=== PATIENT | female | born 1960 | race Caucasian/White ===

== ENCOUNTER → 2017-06-06 | Outpatient (CLI) | payer BC ==
--- NOTE | 2017-06-06 09:22 | US ---
EXAMINATION TYPE: US kidneys/renal and bladder DATE OF EXAM: 06/06/2017 COMPARISON: NONE CLINICAL HISTORY: N30.20 Chronic cystitis. Pt states recurrent UTI's EXAM MEASUREMENTS: Right Kidney: 10.3 x 4.7 x 4.7 cm Left Kidney: 11.4 x 5.9 x 4.7 cm Right Kidney: wnl Left Kidney: appeared wnl, difficult to visualize due to overlying bowel gas Bladder: wnl Bilateral Jets seen: No There is no evidence for hydronephrosis at this point in time. No nephrolithiasis is seen. No moe s are identified. The urinary bladder is anechoic. Bilateral ureteral jets are seen. Incidental finding AAA, largest measurement= 4.8 cm/ pt states this is known IMPRESSION: 1. AAA. 2. Unremarkable evaluation of the kidneys.
== END | disposition home or self-care (01) ==
LOC: RADUSWWP 08:36
PROVIDERS: ATTEND Urology
DX: I71.4 Abdominal aortic aneurysm, without rupture (principal)
CPT/HCPCS: 76770

== ENCOUNTER → 2017-07-20 | Outpatient (CLI) | payer BC ==
[2017-07-20 16:42] LABS: CH 32.8; CHCM 33.2; HCT 35.7 % (34.0-46.0); HDW 2.48; HGB 11.9 gm/dL (11.4-16.0); MCH 33.4 pg (25.0-35.0); MCHC 33.5 g/dL (31.0-37.0); MCV 99.6 fL (80.0-100.0); Macrocytosis Slight; Mean Platelet Volume 7.2; RBC 3.58 m/uL (3.80-5.40); RDW 15.1 % (11.5-15.5)
[2017-07-20 16:51] LABS: Anion Gap 8 mmol/L; Blood Urea Nitrogen 13 mg/dL (7-17); Calcium 9.7 mg/dL (8.4-10.2); Carbon Dioxide 27 mmol/L (22-30); Chloride 105 mmol/L (98-107); Glucose 103 mg/dL (74-99); Non-African American GFR(MDRD) >60 (>60 ml/min/1.73 sqM); Potassium 4.6 mmol/L (3.5-5.1); Sodium 140 mmol/L (137-145)
== END | disposition home or self-care (01) ==
LOC: LABPAT 16:24
PROVIDERS: ATTEND Urology
DX: R39.12 Poor urinary stream (principal); Z01.812 Encounter for preprocedural laboratory examination
CPT/HCPCS: 80048; 85027; 87086

== ENCOUNTER → 2017-11-08 | Outpatient (CLI) | payer MEDICARE, OTHER ==
[2017-11-08 12:11] LABS: Anion Gap 7 mmol/L; Blood Urea Nitrogen 15 mg/dL (7-17); Calcium 10.1 mg/dL (8.4-10.2); Carbon Dioxide 31 mmol/L (22-30); Chloride 102 mmol/L (98-107); Glucose 105 mg/dL (74-99); Potassium 5.4 mmol/L (3.5-5.1); Sodium 140 mmol/L (137-145)
[2017-11-08 12:30] LABS: HCT 42.2 % (34.0-46.0); HGB 13.3 gm/dL (11.4-16.0); MCH 30.9 pg (25.0-35.0); MCHC 31.5 g/dL (31.0-37.0); MCV 98.2 fL (80.0-100.0); Macrocytosis Slight; Mean Platelet Volume 7.7; Platelet Count 318 k/uL (150-450); RDW 15.7 % (11.5-15.5); WBC 5.3 k/uL (3.8-10.6)
== END | disposition home or self-care (01) ==
LOC: LABPAT 10:57
PROVIDERS: ATTEND Urology
DX: Z01.818 Encounter for other preprocedural examination (principal); R35.0 Frequency of micturition; N30.20 Other chronic cystitis without hematuria; N39.41 Urge incontinence; Z79.899 Other long term (current) drug therapy
CPT/HCPCS: 36415; 80048; 85027; 87086

== ENCOUNTER 2017-11-09 08:01 | Day surgery (SDC) | payer OTHER, MEDICARE ==
[2017-11-08 12:21] VITALS: BMI 38.4
[~2017-11-09 08:01] MED LIST: GENTAMICIN 120 MG in SODIUM CHLORIDE 0.9% 100 ML IVPB ONE; ceFAZolin IN SWFI 2 GM/20 ML SYRINGE IVP ONE
[2017-11-09 08:32] VITALS: TEMP 98.2
[2017-11-09] MEDS ORDERED: LACTATED RINGERS 1,000 ML IV ONE ×3 (08:46→11:06)
[2017-11-09] MEDS ORDERED: ONDANSETRON 4 MG/2 ML VIAL IVP ONE (08:55)
[2017-11-09] MEDS ORDERED: PROPOFOL 10 MG/ML 20 ML VIAL IV ONE (10:19)
[2017-11-09] MEDS ORDERED: MIDAZOLAM 2 MG/2 ML VIAL ONE (10:19)
[2017-11-09] MEDS ORDERED: LIDOCAINE 1% INJ 10MG/ML (20 ML MDV) ONE (10:19)
[2017-11-09] MEDS ORDERED: SUCCINYLCHOLINE CHLORIDE 100 MG/5 ML SYR IV ONE (10:19)
[2017-11-09] MEDS ORDERED: fentaNYL (PF) 50 MCG/ML 2 ML AMP ONE (10:19)
[2017-11-09] MEDS ORDERED: BUPIVACAINE-EPI 0.5%-1:200,000 10 ML VIAL SQ ONE ×2 (10:41)
[2017-11-09] MEDS ORDERED: GENTAMICIN IRRIGATION ONE (11:00)
[2017-11-09] MEDS ORDERED: SODIUM CHLORIDE 0.9% IRRIGATION ONE (11:00)
[2017-11-09] MEDS ORDERED: BACITRACIN 500 UNIT/GM OINT 28.4 GM TUBE TOPICAL ONE (11:03)
--- NOTE | 2017-11-09 11:49 | P.OP ---
Date of Procedure: 11/09/17 Preoperative Diagnosis: Urge Incontinence, Suburethral Synthetic Graft Erosion Postoperative Diagnosis: Same Procedure(s) Performed: Excision of Eroded Synthetic Graft Anesthesia: BRUNO Surgeon: Zach Arguelles Estimated Blood Loss (ml): 10 IV fluids (ml): 1,000 Pathology: none sent Condition: stable Disposition: PACU Indications for Procedure: She is a 57 year old female with a history of 5-6 UTI per year since having an anterior repair with TOT sling done in 2011. She has also been experiencing severe urgency and urge incontinence since the surgery, requiring 1-2 thick pads daily. Prior to the sling, she experienced mild MADDI with coughing and dancing, which did not require the use of pads. She has been on Vesicare, Ditropan and another drug, and none have worked. She has recently been treated for several UTI's (E coli and Enterobacter). Myrbetriq 50 mg helped her urgency to a suboptimal degree. Urodynamic testing showed an interrupted stream, but voiding pressures are low and bladder emptying is complete. She underwent takedown of the sling, and she states that her symptoms are 90% improved. Her urgency has almost resolved; she denies AMDDI. She resumed sexual activity, and her complains of something in the vagina picking at him. Examination reveals slight separation at the midline, and part of the sling can be felt. She was treated with Estrace vaginal cream, but this failed to help. She will thus undergo removal of exposed sling. Bactrim was prescribed for her recurrent UTI. Operative Findings: Small amount of eroded graft, arising from the left of midline. Description of Procedure: The patient was taken to the operating room and placed in the dorsal lithotomy position, with her legs supported in Saji stirrups. The perineum, lower abdomen, and vagina were prepped and draped sterilely. A 16-Tuvaluan Perez catheter was placed. 0.5% Marcaine with epinephrine was injected submucosally within the anterior vaginal wall, over the urethra. A very small amount of synthetic graft was seen to extrude through the anterior vaginal wall in the midline, over the urethra. The scalpel was then used to make an anterior midline vaginal incision over the urethra, in the area where the extruded graft was present. Metzenbaum scissors were used to dissect laterally within the submucosal plane. The visible graft was from the left side, and was immediately deep to the vaginal mucosa. The graft was dissected off of the vaginal mucosa, and the portion of the graft overlying the urethra was excised. The graft was then identified on the right side, and an identical procedure was performed. Once this was completed, there was no graft material within 1 cm of the vaginal incision. Care was taken to avoid any injury to the urethra. Any bleeders were controlled with electrocautery, achieving excellent hemostasis. The wound was irrigated with a gentamicin solution. The vaginal incision was then closed using 2-0 Vicryl suture in a running fashion. All sponge and needle counts were correct. The Perez catheter was removed. The patient tolerated the procedure well and was taken to the recovery room in stable condition. During the procedure, the patient's bus driver/monitor showed evidence of atrial fibrillation, though she remained hemodynamically stable. She has a history of atrial fibrillation, and will be seen by cardiology prior to discharge.
[2017-11-09] MEDS ORDERED: RIVAROXABAN 10 MG TAB PO SCH (13:15)
--- NOTE | 2017-11-09 13:23 | P.CRDCN ---
History of Present Illness Consult date: 11/09/17 History of present illness: Mrs. Garibay is a pleasant 57-year-old female with past medical history significant for hypertension, aortic aneurysm, atrial fibrillation, PE, DVT, anxiety and former tobacco abuse. She is here in the hospital for sling removal per Dr. Arguelles. During the procedure she went into atrial fibrillation with controlled ventricular response. For this reason we have been asked to evaluate the patient in the recovery room. Prior to surgery she was in sinus mechanism with no arrhythmia noted. She states she was told she had gone into atrial fibrillation last year while she was undergoing a lengthy back surgery but it was controlled rate as well. Post-operatively she developed a DVT that subsequently traveled and caused a PE. She was anticoagulated at that time with xarelto for 3 months. She is currently not on any supervisor long goods anticoagulation. She is unaware of the fact she is in an abnormal rhythm. She denies chest pain, shortness of breath, dizziness, palpitation or diaphoresis. EKG reveals atrial fibrillation with controlled ventricular response. Laboratory data drawn yesterday pre-operatively reveals hemoglobin 13.3, platelets 318, potassium 5.4, creatinine 0.9 with a GFR greater than 60. Current cardiac medications include lopressor 50 mg daily and lisinopril 10 mg daily. Review of Systems At the time of my exam: CONSTITUTIONAL: Denies fever. Denies chills. EYES: Denies blurred vision. Denies vision changes. Denies eye pain. EARS, NOSE, MOUTH & THROAT: Denies headache. Denies sore throat. Denies ear pain. CARDIOVASCULAR: Denies chest pain. Denies shortness of breath. Denies orthopnea. Denies PND. Denies palpitations. RESPIRATORY: Denies cough. GASTROINTESTINAL: Denies abdominal pain. Denies diarrhea. Denies constipation. Denies nausea. Denies vomiting. MUSCULOSKELETAL: Denies myalgias. INTEGUMENTARY: Denies pruitis. Denies rash. NEUROLOGIC: Denies numbness. Denies tingling. Denies weakness. PSYCHIATRIC: Denies anxiety. Denies depression. ENDOCRINE: Denies fatigue. Denies weight change. Denies polydipsia. Denies polyurina. GENITOURINARY: Denies burning, hematuria or urgency with micturation. HEMATOLOGIC: Denies history of anemia. Denies bleeding. Past Medical History Past Medical History: Cancer, GERD/Reflux, Hypertension Additional Past Medical History / Comment(s): Oral CA 2003; AAA being monitored ; frequent UTI's, poor urinary stream History of Any Multi-Drug Resistant Organisms: None Reported Past Surgical History: Appendectomy, Back Surgery, Bariatric Surgery, Cholecystectomy, Hysterectomy, Joint Replacement, Orthopedic Surgery Additional Past Surgical History / Comment(s): Bladder sling, Colonoscopy, Parathyroid gland removed, R Hip replaced, knee scope, Gastric Bypass Past Anesthesia/Blood Transfusion Reactions: No Reported Reaction Smoking Status: Former smoker - Past Family History Mother Family Medical History: No Reported History Medications and Allergies Home Medications Medication Instructions Recorded Confirmed Type ALPRAZolam [Xanax] 0.5 mg PO Q8HR PRN 07/25/17 11/09/17 History DULoxetine HCL [Cymbalta] 30 mg PO DAILY 07/25/17 11/09/17 History Lansoprazole [Prevacid] 15 mg PO DAILY 07/25/17 11/09/17 History Lisinopril [Zestril] 10 mg PO DAILY 07/25/17 11/09/17 History Meloxicam 7.5 mg PO DAILY 07/25/17 11/09/17 History Metoprolol Tartrate [Lopressor] 50 mg PO DAILY 07/25/17 11/09/17 History Calcium Citrate/Vitamin D3 2 tab PO DAILY 11/08/17 11/09/17 History [Calcitrate + Vit D Caplet] Cholecalciferol [Vitamin D3] 5,000 unit PO DAILY 11/08/17 11/09/17 History Ferrous Sulfate [Iron (65 MG 1 tab PO DAILY 11/08/17 11/09/17 History Elemental)] Rivaroxaban [Xarelto] 20 mg PO W/SUPPER #30 tab 11/09/17 Rx Sulfamethox-Tmp 800-160Mg [Bactrim 1 tab PO BID 11/09/17 11/09/17 History DS 800-160 mg] Allergies Allergy/AdvReac Type Severity Reaction Status Date / Time No Known Allergies Allergy Verified 11/09/17 08:23 Physical Exam Vitals: Vital Signs Temp Pulse Resp BP Pulse Ox 11/09/17 12:31 80 16 143/85 100 11/09/17 12:15 75 16 145/77 100 11/09/17 12:00 73 16 134/75 100 11/09/17 11:43 81 16 140/79 100 11/09/17 11:21 98.2 F 96 16 136/74 97 11/09/17 08:31 98.2 F 67 16 125/70 98 Intake and Output 11/08/17 11/09/17 11/09/17 22:59 06:59 14:59 Intake Total 1104 Output Total 10 Balance 1094 Intake: IV 1104 Output: Estimated Blood Loss 10 Blood pressure 143/85 heart rate 88 afebrile GENERAL: This is a 57-year-old female in no apparent distress at the time of my examination. Obese. HEENT: Head is atraumatic, normocephalic. Pupils are equal, round. Sclerae anicteric. Conjunctivae are clear. Mucous membranes of the mouth are moist. Neck is supple. There is no jugular venous distention. No carotid bruit is heard. LUNGS: Clear to auscultation no wheezes, rales or rhonchi. No chest wall tenderness is noted on palpation or with deep breathing. HEART: Irregular rate and rhythm without murmurs, rubs or gallops. S1 and S2 heard. ABDOMEN: Soft, nontender. Bowel sounds are heard. No organomegaly noted. EXTREMITIES: Trace non-pitting bilateral lower extremity edema and no calf tenderness noted. VASCULAR: Radial and dorsalis pedis pulses palpated, no evidence of clubbing. NEUROLOGIC: Patient is awake, alert and oriented x3. Results 11/09/17 08:43 Comprehensive Metabolic Panel 11/09/17 Range/Units 08:43 Potassium 5.4 H (3.5-5.1) mmol/L Current Medications Generic Name Dose Route Start Last Admin Trade Name Freq PRN Reason Stop Dose Admin Rivaroxaban 20 mg 11/09/17 13:15 Xarelto PO W/SUPPER FARIDEH Intake and Output 11/08/17 11/09/17 11/09/17 22:59 06:59 14:59 Intake Total 1104 Output Total 10 Balance 1094 Intake: IV 1104 Output: Estimated Blood Loss 10 11/09/17 08:43 Assessment and Plan Assessment: ASSESSMENT 1. Paroxysmal atrial fibrillation with controlled ventricular response 2. Essential hypertension 3. Obesity 4. Postoperative swelling removal per Dr. Arguelles PLAN Obtain 2D echocardiogram and doppler study to assess cardiac structure and function. Check TSH. Continue with beta phuc as previously ordered. CHADSVASC score is 2 and therefore we will recommend starting her on Xarelto 20 mg daily. Risks of stroke have been discussed as well as risks of bleeding while on this medication have been discussed. She verbalizes understanding and is in agreement to start this medication. This was also discussed with Dr. Arguelles and he has approved us moving forward in the post-operative phase with starting this medication. First dose now and a prescription has been sent to pharmacy. She will follow up with Dr. Romero in the office in 1-2-weeks, her appointment has been made. This plan has been discussed with her in detail and she is in agreement. The above impression and plan of care have been discussed and directed by the signing physician. Saida Alatorre, nurse practitioner, acting as scribe for signing physician.
[2017-11-09 13:55] VITALS: RESP 18
[2017-11-09 14:14] VITALS: BP 138/72; PULSE 84
--- NOTE | 2017-11-10 09:24 | ECHOF ---
Referral Reason:afib MEASUREMENTS -------- HEIGHT: 175.3 cm WEIGHT: 117.9 kg BP: 131/71 RVIDd: 2.8 cm (< 3.3) IVSd: 1.1 cm (0.6 - 1.1) LVIDd: 4.9 cm (3.9 - 5.3) LVPWd: 1.1 cm (0.6 - 1.1) IVSs: 1.2 cm LVIDs: 3.6 cm LVPWs: 1.3 cm LAESV Index (A-L): 29.84 ml/m Ao Diam: 3.3 cm (2.0 - 3.7) AV Cusp: 1.9 cm (1.5 - 2.6) LA Diam: 3.2 cm (2.7 - 3.8) MV E Jc: 1.05 m/s MV DecT: 303 ms MV A Jc: 0.00 m/s MV E/A Ratio: 299.86 RAP: 5.00 mmHg RVSP: 27.00 mmHg FINDINGS -------- Atrial fibrillation. This was a technically adequate study. The left ventricular size is normal. There is mild concentric left ventricular hypertrophy. Overa ll left ventricular systolic function is normal with, an EF between 55 - 60 %. The right ventricle is normal in size and function. Normal LA size by volume 22+/-6 ml/m2. The right atrium is normal in size. Aortic valve is trileaflet and is mildly thickened. There is no evidence of aortic regurgitation. There is no evidence of aortic stenosis. The mitral valve leaflets are mildly thickened. There is trace mitral regurgitation. Mild tricuspid regurgitation present. Right ventricular systolic pressure is normal at < 35 mmHg. There is no evidence of pulmonary hypertension. The pulmonic valve was not well visualized. The aortic root size is normal. The inferior vena cava is dilated with poor inspiratory collapse which is consistent with estimated r ight atrial pressure of 20 mmHg. The pericardium is normal. There is no pericardial effusion. CONCLUSIONS -------- 1. Atrial fibrillation. 2. This was a technically adequate study. 3. The left ventricular size is normal. 4. There is mild concentric left ventricular hypertrophy. 5. Overall left ventricular systolic function is normal with, an EF between 55 - 60 %. 6. Normal LA size by volume 22+/-6 ml/m2. 7. Aortic valve is trileaflet and is mildly thickened. 8. The mitral valve leaflets are mildly thickened. 9. There is trace mitral regurgitation. 10. Mild tricuspid regurgitation present. 11. Right ventricular systolic pressure is normal at < 35 mmHg. 12. There is no evidence of pulmonary hypertension. 13. The pulmonic valve was not well visualized. 14. The aortic root size is normal. 15. The inferior vena cava is dilated with poor inspiratory collapse which is consistent with estimat ed right atrial pressure of 20 mmHg. 16. There is no pericardial effusion. STITCH CLEANER: Manav Snow RDCS
== END 2017-11-09 14:44 | disposition home or self-care (01) ==
LOC: OR 08:01
PROVIDERS: ATTEND Urology
DX: T83.24XA Erosion of graft of urinary organ, initial encounter (principal); N30.20 Other chronic cystitis without hematuria; N39.41 Urge incontinence; I48.91 Unspecified atrial fibrillation; Z79.01 Long term (current) use of anticoagulants; I10 Essential (primary) hypertension; Z87.891 Personal history of nicotine dependence; K21.9 Gastro-esophageal reflux disease without esophagitis; Z86.718 Personal history of other venous thrombosis and embolism; Z86.711 Personal history of pulmonary embolism; E66.9 Obesity, unspecified; Z68.38 Body mass index [BMI] 38.0-38.9, adult; Z98.84 Bariatric surgery status; D18.09 Hemangioma of other sites; M19.90 Unspecified osteoarthritis, unspecified site; Z79.2 Long term (current) use of antibiotics; Z79.1 Long term (current) use of non-steroidal anti-inflammatories (NSAID); Z79.899 Other long term (current) drug therapy
CPT/HCPCS: 93306; 93005; 84443; 84132; 57295; J2250; J1580 ×2; J0690; J2405; J2001; J3010; J0330; J2704

== ENCOUNTER → 2017-12-19 | Outpatient (CLI) | payer OTHER, MEDICARE ==
[2017-12-19 10:51] LABS: Anion Gap 8 mmol/L; Blood Urea Nitrogen 20 mg/dL (7-17); Carbon Dioxide 28 mmol/L (22-30); Chloride 104 mmol/L (98-107); Potassium 5.2 mmol/L (3.5-5.1); Sodium 140 mmol/L (137-145)
[2017-12-19 11:54] LABS: HCT 41.9 % (34.0-46.0); HGB 12.8 gm/dL (11.4-16.0); Hypochromasia Slight; MCH 31.2 pg (25.0-35.0); MCHC 30.6 g/dL (31.0-37.0); MCV 101.9 fL (80.0-100.0); Macrocytosis Slight; Mean Platelet Volume 6.7; Platelet Count 393 k/uL (150-450); RBC 4.11 m/uL (3.80-5.40); RDW 13.8 % (11.5-15.5); WBC 5.6 k/uL (3.8-10.6)
== END | disposition home or self-care (01) ==
LOC: LABPAT 09:54
PROVIDERS: ATTEND Internal Medicine Cardiovascular Disease
DX: Z01.812 Encounter for preprocedural laboratory examination (principal); I48.1 Persistent atrial fibrillation
CPT/HCPCS: 36415; 80051; 82565; 84520; 85027

== ENCOUNTER 2017-12-27 06:19 | Day surgery (SDC) | payer OTHER, MEDICARE ==
[2017-12-22 15:29] VITALS: BMI 38.4
[~2017-12-27 06:19] MED LIST changes: -GENTAMICIN 120 MG in SODIUM CHLORIDE 0.9% 100 ML IVPB ONE; +LACTATED RINGERS 1,000 ML IV SCH; +SODIUM CHLORIDE 0.9% 1,000 ML IV SCH; -ceFAZolin IN SWFI 2 GM/20 ML SYRINGE IVP ONE
[2017-12-27 06:46] VITALS: TEMP 97.9
[2017-12-27] MEDS ORDERED: IV FLUID CONTINUATION 500 ML IV ONE (07:05)
[2017-12-27 07:12] LABS: Potassium 4.3 mmol/L (3.5-5.1)
[2017-12-27] MEDS ORDERED: PROPOFOL 10 MG/ML 20 ML VIAL IV ONE (07:31)
[2017-12-27] MEDS ORDERED: LIDOCAINE 1% INJ 10MG/ML (20 ML MDV) ONE (07:31)
[2017-12-27] MEDS ORDERED: FLECAINIDE 50 MG TAB PO STA (07:49)
--- NOTE | 2017-12-27 08:13 | ECHOT ---
TRANSESOPHAGEAL ECHOCARDIOGRAM INDICATION: Chronic atrial fibrillation. PROCEDURE NOTE: After obtaining informed consent, transesophageal echocardiogram is performed in left lateral position using an Omniplane probe. . The patient tolerated the procedure well without any obvious immediate complications. FINDINGS: 1. There is no intracardiac thrombus within the left atrial appendage, left atrium, right atrium, right ventricle. 2. Left ventricle has normal size and systolic function. 3. mitral regurgitation. 4. Aortic valve . 5. Tricuspid valve shows mild tricuspid regurgitation. 6. Interatrial septum: There is no evidence of left to right shunt by color-flow Doppler or lqrrl-gb-[id number] shunt by agitated saline contrast. . 7. Aorta shows mild atherosclerotic changes. CONCLUSIONS: 1. No intracardiac thrombus. 2. Mild mitral regurgitation. PLAN: The patient will have cardioversion. DEVAN / PITERN: [id number] /
--- NOTE | 2017-12-27 08:22 | CE ---
CARDIAC ELECTROPHYSIOLOGY REPORT CARDIOVERSION NOTE INDICATION: Chronic atrial fibrillation. After obtaining informed consent, electrical cardioversion was performed using 200 joules of direct current, 300 joules of DC current. The patient was adequately anticoagulated with Xarelto. We were unsuccessful the first time. We shocked her the second time, she was briefly in sinus rhythm with occasional P waves, but reverted back to atrial fibrillation. PLAN: The plan is to admit her overnight, start her on flecainide 100 mg b.i.d., and if she tolerates it well, bring her back in 2 to 3 weeks later and then attempt the procedure again. MMJANIYAL / PITERN: [id number] /
[2017-12-27 08:44] VITALS: BP 188/92; PULSE 60; RESP 18
[2017-12-27] MEDS ORDERED: FLECAINIDE 50 MG TAB PO SCH (21:00)
== END 2017-12-27 09:30 | disposition home or self-care (01) ==
LOC: CATHCVL 06:19
PROVIDERS: ATTEND Internal Medicine Cardiovascular Disease
DX: I48.2 Chronic atrial fibrillation (principal); Z79.01 Long term (current) use of anticoagulants; I34.0 Nonrheumatic mitral (valve) insufficiency; I10 Essential (primary) hypertension; Z82.49 Family history of ischemic heart disease and other diseases of the circulatory system; Z79.1 Long term (current) use of non-steroidal anti-inflammatories (NSAID); Z79.899 Other long term (current) drug therapy
CPT/HCPCS: 93312; 93320; 93325; 92960; 80051; J2001; J2704; 93005

== ENCOUNTER 2018-02-07 09:07 | Day surgery (SDC) | payer OTHER, MEDICARE ==
[2018-02-06 12:00] VITALS: BMI 38.5
[~2018-02-07 09:07] MED LIST changes: +LIDOCAINE 1% 20 ML VIAL (10MG/ML) FOR IV START INTRADERMA PRN
[2018-02-07 09:24] VITALS: TEMP 98.2
[2018-02-07 09:58] LABS: Anion Gap 8 mmol/L; Blood Urea Nitrogen 24 mg/dL (7-17); Calcium 9.4 mg/dL (8.4-10.2); Carbon Dioxide 26 mmol/L (22-30); Chloride 107 mmol/L (98-107); Glucose 89 mg/dL (74-99); Potassium 4.7 mmol/L (3.5-5.1); Sodium 141 mmol/L (137-145)
[2018-02-07] MEDS ORDERED: LIDOCAINE 1% INJ 10MG/ML (20 ML MDV) ONE (10:30)
[2018-02-07] MEDS ORDERED: PROPOFOL 10 MG/ML 20 ML VIAL IV ONE (10:30)
[2018-02-07] MEDS ORDERED: BENZOCAINE SPRAY 1 CAN MUCOUS MEM ONE (10:38)
[2018-02-07 11:09] VITALS: RESP 16
[2018-02-07] MEDS ORDERED: SODIUM CHLORIDE 0.9% 1,000 ML IV SCH (12:00)
[2018-02-07 12:06] VITALS: PULSE 62
[2018-02-07 12:09] VITALS: BP 110/64
--- NOTE | 2018-02-07 12:39 | ECHOT ---
TRANSESOPHAGEAL ECHOCARDIOGRAM INDICATION: Chronic atrial fibrillation. PROCEDURE: After obtaining informed consent, transesophageal echocardiogram was performed in left lateral position using an Omniplane probe. Local and IV sedation were obtained by the seat installer. The patient tolerated the procedure well without any obvious immediate complications. FINDINGS: 1. There is no intracardiac thrombus within the left atrial appendage, left atrium, right atrium, right ventricle. 2. Left ventricle has normal size and systolic function. 3. There is mild enlargement of the left atrium. 4. Mitral valve is anatomically normal. There is mild mitral regurgitation noted. 5. Tricuspid valve appears normal. There is mild tricuspid regurgitation noted. There is no evidence of rxzt-bd-rtbth shunt by color-flow Doppler or zoaqp-hd-rfvh shunt by agitated saline contrast study. CONCLUSIONS: 1. No intracardiac thrombus. 2. Normal left ventricular systolic function. PLAN: Patient will undergo cardioversion. MMODL / IJN: [id number] /
--- NOTE | 2018-02-07 12:42 | CE ---
CARDIAC ELECTROPHYSIOLOGY REPORT CARDIOVERSION NOTE INDICATION: Chronic atrial fibrillation. Patient has known chronic atrial fibrillation and is currently on Xarelto. She underwent cardioversion several weeks ago unsuccessfully. We tried her on flecainide and Rythmol, which she could not tolerate. She is currently on amiodarone 200 b.i.d., and she underwent cardioversion using initially 300 joules of synchronized DC current, which was unsuccessful and then I shocked her a second time with 360 joules. Following which, she converted to sinus rhythm. The patient tolerated the procedure well without any obvious immediate complications and sedation was obtained by the wet pan operator. MMJANIYAL / IJN: [id number] /
== END 2018-02-07 12:23 | disposition home or self-care (01) ==
LOC: CATHCVL 09:07
PROVIDERS: ATTEND Internal Medicine Cardiovascular Disease
DX: I48.2 Chronic atrial fibrillation (principal); R00.1 Bradycardia, unspecified; I10 Essential (primary) hypertension; E78.5 Hyperlipidemia, unspecified; K21.9 Gastro-esophageal reflux disease without esophagitis; Z82.49 Family history of ischemic heart disease and other diseases of the circulatory system; Z79.1 Long term (current) use of non-steroidal anti-inflammatories (NSAID); Z79.899 Other long term (current) drug therapy; Z79.01 Long term (current) use of anticoagulants
CPT/HCPCS: 93312; 93320; 93325; 92960; 80048; J2001; J2704; 93005

== ENCOUNTER 2018-12-31 09:33 | Day surgery (SDC) | payer OTHER, MEDICARE ==
[2018-12-28 12:36] VITALS: BMI 37.4
[~2018-12-31 09:33] MED LIST changes: -SODIUM CHLORIDE 0.9% 1,000 ML IV SCH
[2018-12-31 10:19] VITALS: RESP 16; TEMP 97.2
[2018-12-31 10:29] LABS: Glucose,Whole Blood 90 mg/dL (75-99)
[2018-12-31] MEDS ORDERED: PROPOFOL 10 MG/ML 20 ML VIAL IV ONE (11:30)
[2018-12-31 12:24] VITALS: BP 172/82; PULSE 64
--- NOTE | 2018-12-31 16:47 | P.PCN ---
Date of Procedure: 12/31/18 Procedure(s) Performed: Procedure: Colonoscopy and biopsy. Preoperative diagnosis: Chronic diarrhea. Postoperative diagnosis: 1. Exam of the colon and terminal ileum within normal limits. 2. Biopsies obtained from the terminal ileum and right colon. Preparation: HalfLytely prep. Sedation: Was provided by anesthesia. Brief clinical history: The patient is a 58-year-old female who was evaluated in the office last month for further evaluation of diarrhea. She underwent Fabian-en-Y gastric bypass in 1999 and has complained of intermittent diarrhea since that time. She had a colonoscopy performed in October 2009 which was within normal limits. This evaluation is to assess for microscopic colitis or other pathology. Procedure: With the patient on her left lateral decubitus addition and after informed consent and adequate sedation, the perianal area was inspected and it did not show any fissures or fistulas. There were no masses felt on digital rectal examination. The Olympus CFH 190L video colonoscope was then inserted in the rectum in the usual fashion and advanced to the cecum. I intubated the ileocecal valve and examined the terminal ileum. Terminal ileum and colon appeared healthy with no edema, erythema, friability, ulceration, exudation or spontaneous bleeding. No polyps or tumors were seen or any obvious diverticular disease. I obtained biopsies from the terminal ileum and right colon then the endoscope was withdrawn. The patient tolerated the procedure well. Plan: The patient was reassured. Will await biopsy results. She will follow-up in the office later this month as planned and we would keep you updated on her progress.
== END 2018-12-31 12:54 | disposition home or self-care (01) ==
LOC: ORWHC2ENDO 09:33
DX: K52.9 Noninfective gastroenteritis and colitis, unspecified (principal); K21.9 Gastro-esophageal reflux disease without esophagitis; I48.91 Unspecified atrial fibrillation; E78.5 Hyperlipidemia, unspecified; I10 Essential (primary) hypertension; F41.9 Anxiety disorder, unspecified; Z85.819 Personal history of malignant neoplasm of unspecified site of lip, oral cavity, and pharynx; Z86.718 Personal history of other venous thrombosis and embolism; Z98.84 Bariatric surgery status; Z79.01 Long term (current) use of anticoagulants; Z79.899 Other long term (current) drug therapy
CPT/HCPCS: 88305; 45380; J2704

== ENCOUNTER 2020-06-17 07:05 | Day surgery (SDC) | payer MEDICARE, OTHER ==
[2020-06-10 10:28] VITALS: BMI 37.1
[~2020-06-17 07:05] MED LIST changes: -LACTATED RINGERS 1,000 ML IV SCH; -LIDOCAINE 1% 20 ML VIAL (10MG/ML) FOR IV START INTRADERMA PRN; +SODIUM CHLORIDE 0.9% 1,000 ML IV SCH
[2020-06-17 07:56] LABS: African American GFR (CKD) >90 (>60 ml/min/1.73 sqM); Anion Gap 4 mmol/L; Blood Urea Nitrogen 11 mg/dL (7-17); Carbon Dioxide 27 mmol/L (22-30); Chloride 108 mmol/L (98-107); Glucose 92 mg/dL (74-99); Non-African American GFR(CKD) >90 (>60 ml/min/1.73 sqM); Potassium 4.3 mmol/L (3.5-5.1); Sodium 139 mmol/L (137-145)
[2020-06-17] MEDS ORDERED: PROPOFOL 10 MG/ML 20 ML VIAL IV ONE (07:58)
[2020-06-17] MEDS ORDERED: SODIUM CHLORIDE 0.9% 1,000 ML IV SCH (08:30)
[2020-06-17 08:31] VITALS: RESP 16; TEMP 98.7
[2020-06-17 11:24] VITALS: BP 156/76; PULSE 57
--- NOTE | 2020-06-23 09:23 | ECHOT ---
TRANSESOPHAGEAL ECHOCARDIOGRAM INDICATION: Persistent atrial fibrillation. PROCEDURE: JEEVAN A transesophageal echocardiogram was performed in left lateral position using an Omni plane probe. Local and IV sedation were obtained by the body bumper. Patient tolerated the procedure well without any obvious immediate complications. A 2D color Doppler evaluation was performed. FINDINGS: 1. There is no intracardiac thrombus within the left atrial appendage, left atrium, right atrium. right ventricle. 2. Left ventricle has normal size and systolic function. 3. Left atrium appears mildly enlarged. 4. Mitral valve shows mild mitral regurgitation. 5. Tricuspid valve shows mild tricuspid regurgitation. 6. Aortic valve is free of stenosis or regurgitation. 7. Interatrial septum, there is no evidence of [id number]-zk-tkjcf shunt by color-flow Doppler or cutql-hr-rjau shunt by agitated saline contrast study. CONCLUSION: 1. No intracardiac thrombus. 2. Patient will proceed with cardioversion. CARDIOVERSION NOTE: After obtaining informed consent, the patient was sedated by the body bumper. The transesophageal echocardiogram was performed to rule out intracardiac thrombus. Patient is adequately anticoagulated with Xarelto and was also on amiodarone. We attempted cardioversion using synchronized current, we attempted with 303 and 360 joules. The patient did not convert to sinus rhythm. The plan is to continue her on current medications and consider peripheral to EP for ablation. MMODL / IJN: [id number] /
== END 2020-06-17 09:50 | disposition home or self-care (01) ==
LOC: CATHCVL 07:05
PROVIDERS: ATTEND Internal Medicine Cardiovascular Disease
DX: I48.19 Other persistent atrial fibrillation (principal); I10 Essential (primary) hypertension; E78.2 Mixed hyperlipidemia; I71.4 Abdominal aortic aneurysm, without rupture; F17.210 Nicotine dependence, cigarettes, uncomplicated; K21.9 Gastro-esophageal reflux disease without esophagitis; Z79.01 Long term (current) use of anticoagulants; Z79.899 Other long term (current) drug therapy; Z79.82 Long term (current) use of aspirin; Z82.49 Family history of ischemic heart disease and other diseases of the circulatory system
CPT/HCPCS: 93312; 93320; 93325; 92960; 80048; J2704

== ENCOUNTER → 2020-07-07 | Outpatient (CLI) | payer MEDICARE ==
[2020-07-07 12:22] LABS: African American GFR (CKD) >90 (>60 ml/min/1.73 sqM); Blood Urea Nitrogen 12 mg/dL (7-17); Non-African American GFR(CKD) 88 (>60 ml/min/1.73 sqM)
[2020-07-07 12:43] LABS: HCT 42.7 % (34.0-46.0); HGB 13.3 gm/dL (11.4-16.0); MCH 30.5 pg (25.0-35.0); MCHC 31.1 g/dL (31.0-37.0); MCV 98.3 fL (80.0-100.0); Mean Platelet Volume 7.1; Platelet Count 273 k/uL (150-450); RBC 4.35 m/uL (3.80-5.40); RDW 14.5 % (11.5-15.5); WBC 5.8 k/uL (3.8-10.6)
== END | disposition home or self-care (01) ==
LOC: LABPAT 10:05
PROVIDERS: ATTEND Internal Medicine Clinical Cardiac Electrophysiology
DX: Z01.818 Encounter for other preprocedural examination (principal); I48.11 Longstanding persistent atrial fibrillation
CPT/HCPCS: 36415; 82565; 83735; 84520; 85027

== ENCOUNTER 2020-07-23 09:37 | Day surgery (SDC) | payer MEDICARE ==
[2020-07-23] MEDS: SODIUM CHLORIDE 0.9% 1,000 ML IV SCH (10:29)
[2020-07-23] MEDS ORDERED: PROTAMINE SULFATE 10 MG/ML 5 ML VIAL IV ONE (13:06)
[2020-07-23] MEDS ORDERED: LIDOCAINE 1% INJ 10MG/ML (20 ML MDV) ONE (13:06)
[2020-07-23] MEDS ORDERED: DEXAMETHASONE SOD PHOSPHATE 10 MG/ML 1 ML VIAL ONE (13:06)
[2020-07-23] MEDS ORDERED: fentaNYL (PF) 50 MCG/ML 2 ML AMP ONE (13:06)
[2020-07-23] MEDS ORDERED: SUCCINYLCHOLINE CHLORIDE 100 MG/5 ML SYR IV ONE (13:06)
[2020-07-23] MEDS ORDERED: ROCURONIUM BROMIDE 10 MG/ML 5 ML VIAL IV ONE (13:06)
[2020-07-23] MEDS ORDERED: PROPOFOL 10 MG/ML 20 ML VIAL IV ONE (13:06)
[2020-07-23] MEDS ORDERED: MIDAZOLAM 2 MG/2 ML VIAL ONE (13:06)
[2020-07-23] MEDS ORDERED: ONDANSETRON 4 MG/2 ML VIAL ONE (13:06)
[2020-07-23] MEDS ORDERED: PHENYLEPHRINE-0.9% NACL SYG 1 MG/10 ML SYRINGE ONE (13:06)
[2020-07-23] MEDS ORDERED: NEOSTIGMINE 1 MG/ML 10 ML VIAL ONE (13:06)
[2020-07-23] MEDS ORDERED: GLYCOPYRROLATE 0.2 MG/ML 2 ML VIAL ONE (13:06)
[2020-07-23] MEDS ORDERED: HEPARIN SODIUM,PORCINE 10,000 UNIT/ML 1 ML VIAL ONE (13:06)
[2020-07-23] MEDS ORDERED: HEPARIN SOD,PORK IN 0.45% NACL 25,000 UNIT in 0.45% NACL 1 250ML.BAG IV ONE (13:40)
[2020-07-23] MEDS ORDERED: HEPARIN SODIUM (1,000 UNIT/ML) 1,000 UNIT in SODIUM CHLORIDE 0.9% 1,000 ML IRRIGATION ONE (13:41)
[2020-07-23] MEDS ORDERED: LIDOCAINE 1% INJ 10MG/ML (20 ML MDV) SQ ONE (13:52)
[2020-07-23] MEDS ORDERED: IOPAMIDOL-370 100ML BTL INJ ONE (15:18)
[2020-07-23] MEDS ORDERED: LACTATED RINGERS 1,000 ML IV ONE (15:31)
[2020-07-23] MEDS ORDERED: ACETAMINOPHEN TAB 325 MG TAB PO PRN (17:40)
[2020-07-23] MEDS ORDERED: HYDROcodone/APAP 5-325MG 1 EACH TAB PO PRN (17:40)
[2020-07-23] MEDS ORDERED: ALPRAZolam 0.5 MG TAB PO PRN (17:42)
--- NOTE | 2020-07-23 18:11 | P.PCN ---
Preoperative Diagnosis: Diagnosis Atrial fibrillation, symptomatic, refractory to therapy Persistent Result No left atrial appendage mass seen on intracardiac echo Successful pulmonary vein isolation of all veins using cryo-ablation Complete entrance block in all 4 veins confirmed No evidence for phrenic nerve injury Esophageal deflection YES Electrical cardioversion with a synchronized shock across the chest YES Procedure details Patient was brought to the EP lab in a fasting state. Written informed consent was obtained prior to the procedure. Procedure performed under general anesthesia After initial muscle relaxant use, muscle relaxants were not given thereafter in order to assess phrenic nerve during procedure. Patient prepped and draped as per protocol Full cryo-set up with standard preparation of the cryoablation tools done. Femoral Venous access obtained on the right and left groins Venous and arterial Sheaths placed. Diagnostic catheters for the high right atrium, phrenic nerve stimulation and pacing, His bundle, RV and coronary sinus placed Intracardiac echo catheter placed. Long sheath placed in the right atrium Left and right transseptal catheterization performed under intracardiac echo guidance. Intravenous heparin with aCT above 300 Later, catheter positioning and balloon positioning in the left atrium, under in tracardiac echo guidance Diagnostic EP study with Coronary sinus pacing and recording Baseline measurements Atrial pacing performed from the high right atrium and the coronary sinus RV pacing VA Wenckebach block greater than 600 ms AV node Wenckebach block 590 ms Transseptal catheterization performed RA pressure 17/9/14 LA pressure 25/10/7 Transseptal catheterization performed with standard sheath. The cryoablation sheath was then placed with an over the wire exchange without any acute complications. All 4 pulmonary veins were isolated in the following sequence: Left superior followed by left inferior followed by right superior followed by right inferior The cryo-ablation balloon was placed at the os of each vein 1.5 mL of IV dye was injected to confirm an occluded vein Goal during cryoablation was to achieve complete occlusion of the pulmonary vein, achieve -30 degrees C at 30 seconds and achieve -40 degrees C at 60 seconds and a time to effect of less than 60-90 seconds, . If not the balloon was repositioned to obtain this result After completion of Cryoblation with durations from 180-240 seconds, entrance block was confirmed with the Attain circular catheter in a roving fashion around the antrum of the pulmonary veins Phrenic nerve pacing was performed from the SVC, right innominate vein area and diaphragm voltage was monitored. Diaphragmatic contractions were also monitored manually for strength of contraction. Parameter goals for each cryo freeze Complete occlusion of the appropriate vein -30 degrees C by 30 seconds -40 degrees C by 60 seconds Minimum between minus 40-55 degrees C Thaw time greater than 10 seconds Balloon visualized by intracardiac echo The esophagus was intubated. Esophageal Temperature monitoring with a CIRCA catheter formed. Esophageal deflection for hypothermia of the esophagus below 30 degrees C Left superior pulmonary vein Complete isolation, entrance block Left inferior pulmonary vein Complete isolation, entrance block Right superior pulmonary vein, during phrenic nerve pacing Complete isolation, entrance block Right inferior pulmonary vein, during phrenic nerve pacing Complete isolation, entrance block At the end of the procedure the Achieve catheter was once again used to check for entrance block Phrenic nerve stimulation was performed to confirm diaphragmatic stimulation the end of the procedure Cine fluoroscopy was performed at the very end of the procedure to confirm movement of both diaphragms with inspiration and expiration 3-D electro-anatomic mapping was performed The pulmonary veins were completely isolated. Entrance and exit block was documented. Isolation was at an anterolateral level The patient remained in atrial fibrillation First linear ablation along the anterior LA roof was performed. This resulted in minimal organization of atrial fibrillation RF ablation was then performed along the septum from the LA roof to the R IPV, 6:00 This resulted in further organization of atrial fibrillation Thereafter mapping was performed once again in the left atrium and the RF line of block was made in the bridge between the left atrial appendage and the left- sided pulmonary veins. This resulted in further organization of atrial fibrillation Thereafter and mitral isthmus line was made this resulted in significant organization of atrial fibrillation but did not terminate A. fib Thereafter electrical cardioversion was performed. 360 J delivered and successful cardioversion performed Following this with differential pacing complete bidirectional block was proven across the mitral isthmus line Scar mapping/watery mapping was performed along the LA roof and a complete line of block was documented Similarly voltage mapping along the septal line was also performed and a complet e line of block was noted This is a very long procedure. The left atrium was significantly enlarged. After pulmonary vein isolation the left atrium was mapped on multiple occasions after every RF line was made multiple maps and multiple RF lines were made resulting in relative organization of atrial fibrillation, At the end of the procedure the patient was extubated Heparin was reversed Venous sheaths were removed and hemostasis assured Procedures performed (PVI - CRYO Ablation) Diagnostic EP study CS pacing and recording Left and right transseptal catheterization 3D mapping) Intracardiac echocardiography Pulmonary vein isolation with transseptal and comprehensive EPS, 31008 Left atrial roof line, +04754 Linear ablation along the septum, left atrium, +23378 Linear ablation along the ridge in between the left atrial appendage and the left-sided pulmonary veins, +56297 Linear ablation along the mitral isthmus, +25101 Electrical cardioversion with a synchronized shock across the chest 91455 Long procedure, increase procedure services, 22
[2020-07-23] MEDS: ACETAMINOPHEN IV (For NPO) 1,000 MG in EMPTY BAG 1 BAG IVPB ONE ×2 (18:22→18:37)
[2020-07-23] MEDS: RIVAROXABAN 20 MG TAB PO SCH (20:54)
--- NOTE | 2020-07-24 07:39 | P.DS ---
Providers Attending physician: Cullen Marsh Primary care physician: [facility] Course: Patient is doing well. No chest discomfort dizziness lightheadedness. The sutures in the groins are out. No groin hematoma no tenderness. Mild sore throat EKG shows sinus rhythm normal MA IVCD left axis deviationRhythm is normal and regular Vitals are stable afebrile blood pressure is normal heart rates are in the 50s and 60s Breath sounds are clear no rhonchi no crackles Normal heart sounds no murmurs no gallops no rub Abdomen is soft nontender Extremity is warm no edema Impression Persistent atrial fibrillation, long-standing Failed amiodarone Dilated left atrium IVCD left axis deviation Mildly abnormal AV node function and sinus node function at EPS Hypertension Aortic aneurysm abdominal status post stenting Status post successful PVI along with linear ablation in the left atrial roof septum of the left atrium, ridge in between the left atrial appendage and left pulmonary veins and mitral isthmus ablation Mitral isthmus ablation resulted in further organization and cycle lengths slowing Electrical cardioversion was performed at the end Sinus bradycardia with abnormal AV node function and sinus node function Suggest Continue xarelto Stop metoprolol Follow Dr. Crump in 1 week Discharge home if stable by late afternoon today Plan - Discharge Summary Discharge Rx Participant: No New Discharge Prescriptions: Discontinued Metoprolol Tartrate [Lopressor] 50 mg PO QAM No Action lisinopriL [Zestril] 10 mg PO QAM Lansoprazole [Prevacid] 15 mg PO DAILY ALPRAZolam [Xanax] 0.5 mg PO Q8HR PRN PRN Reason: Anxiety Rivaroxaban [Xarelto] 20 mg PO DAILY DULoxetine HCL [Cymbalta] 60 mg PO DAILY Cyanocobalamin [Vitamin B-12 Injection] 1,000 mcg SQ QMONTH Acetaminophen [Tylenol Arthritis] 650 mg PO DIRECTED PRN PRN Reason: Pain Sertraline [Zoloft] 100 mg PO DAILY Gabapentin 600 mg PO QAM Discharge Medication List ALPRAZolam [Xanax] 0.5 mg PO Q8HR PRN 07/25/17 [History] Lansoprazole [Prevacid] 15 mg PO DAILY 07/25/17 [History] lisinopriL [Zestril] 10 mg PO QAM 07/25/17 [History] Rivaroxaban [Xarelto] 20 mg PO DAILY 02/07/18 [History] Acetaminophen [Tylenol Arthritis] 650 mg PO DIRECTED PRN 12/28/18 [History] Cyanocobalamin [Vitamin B-12 Injection] 1,000 mcg SQ QMONTH 12/28/18 [History] DULoxetine HCL [Cymbalta] 60 mg PO DAILY 12/28/18 [History] Sertraline [Zoloft] 100 mg PO DAILY 06/10/20 [History] Gabapentin 600 mg PO QAM 07/15/20 [History] Follow up Appointment(s)/Referral(s): Tiago Romero MD [STAFF PHYSICIAN] - 1 Week Activity/Diet/Wound Care/Special Instructions: Post EP study - Ablation instructions 1. Keep access sites dry for 2 days. 2. No heavy lifting or straining for 2 days. 3. Avoid bending the hips repeatedly for 2 days. 4. You may go up and down stairs slowly Call if the following is noted 1. Bleeding, increasing swelling or pain at the access sites. 2. Increasing chest discomfort, especially upon taking a deep breath. 3. Increasing shortness of breath, at rest or with exertion. 4. Undue cough / phlegm 5. Difficulty or pain while swallowing. 6. Pain or change in color in the extremities. 7. Fever, chills, rigors. 8. Increasing headache or neurologic symptoms. 9. Dizziness, fainting, palpitations Xarelto to continue Discontinue metoprolol Follow-up with Dr. Romero in one week Discharge Disposition: HOME SELF-CARE
--- NOTE | 2020-07-24 07:42 | P.PRLE ---
RE: Ellie Garibay Dear Yuliya Patient underwent pulmonary vein isolation and linear ablation in the left atrium. She is a very dilated left atrium. Despite a fairly extensive ablation with complete isolation of the pulmonary veins and complete block along linear ablations she remained in the organized atrial fibrillation of slow cycle length She was electrically cardioverted the end Hopefully she maintains sinus rhythm for a long time The EP study following that showed that she had an abnormal sinus node function as well as an abnormal AV node function. She does have left anterior fascicular block and a QRS width is 120 ms I was asked him to hold metoprolol for now while she is in sinus rhythm but continue xarelto She will continue to follow with you and Dr. Crump as before Thank you for entrusting me with the care of the patient Warm regards Sincerely Cullen Marsh,
[2020-07-24 08:30] VITALS: RESP 16
[2020-07-24] MEDS: SODIUM CHLORIDE 0.9% 1,000 ML IV SCH (08:59)
[2020-07-24] MEDS ORDERED: lisinopriL 10 MG TAB PO SCH (09:00)
[2020-07-24] MEDS ORDERED: PANTOPRAZOLE 40 MG TABLET PO SCH (09:00)
[2020-07-24] MEDS ORDERED: DULoxetine HCL 60 MG CAPSULE.DR PO SCH (09:00)
[2020-07-24] MEDS ORDERED: GABAPENTIN 300 MG CAP PO SCH (09:00)
[2020-07-24] MEDS: RIVAROXABAN 20 MG TAB PO SCH (09:06)
[2020-07-24 15:06] VITALS: BP 109/69; PULSE 98; TEMP 97.9
== END 2020-07-24 16:35 | disposition home or self-care (01) ==
LOC: CATHEP 09:37 → 3NCARDOBS 17:56 → CATHEP 07-24 16:35
PROVIDERS: ATTEND Internal Medicine Clinical Cardiac Electrophysiology
DX: I48.11 Longstanding persistent atrial fibrillation (principal); I71.4 Abdominal aortic aneurysm, without rupture; I10 Essential (primary) hypertension; E78.5 Hyperlipidemia, unspecified; K21.9 Gastro-esophageal reflux disease without esophagitis; Z79.01 Long term (current) use of anticoagulants; Z79.899 Other long term (current) drug therapy; F17.210 Nicotine dependence, cigarettes, uncomplicated; Z86.711 Personal history of pulmonary embolism; Z86.718 Personal history of other venous thrombosis and embolism; Z82.49 Family history of ischemic heart disease and other diseases of the circulatory system
CPT/HCPCS: 85347; 92960; 93662; 93613; 93656; 93657; C1769 ×4; C1894 ×2; C1730 ×2; C1759; C1893; C1733; C1766; C1732; J2250; J2720; J1644 ×3; J1100; J2710; J2405; J2001; J3010; J0131; J2370; J0330; J2704; Q9967

== ENCOUNTER 2023-04-06 06:16 | Day surgery (SDC) | payer MEDICARE ==
[~2023-04-06 06:16] MED LIST changes: +LACTATED RINGERS 1,000 ML IV SCH; -SODIUM CHLORIDE 0.9% 1,000 ML IV SCH
[2023-04-06 07:18] LABS: Glucose,Whole Blood 89 mg/dL (70-110)
[2023-04-06] MEDS ORDERED: LIDOCAINE 2% INJ 20 MG/ML (2 ML VIAL) ONE (07:21)
[2023-04-06] MEDS ORDERED: PROPOFOL 10 MG/ML 20 ML VIAL IV ONE (07:21)
[2023-04-06] MEDS ORDERED: BENZOCAINE SPRAY 1 CAN TOPICAL ONE (07:22)
[2023-04-06 07:23] VITALS: TEMP 96.8
[2023-04-06 07:25] LABS: Prothrombin Time 19.3 sec (9.0-12.0)
--- NOTE | 2023-04-06 08:03 | ECHOT ---
TRANSESOPHAGEAL ECHOCARDIOGRAM INDICATIONS: Persistent atrial fibrillation. PROCEDURE NOTE: After obtaining informed consent, transesophageal echocardiogram is performed in the left lateral position using an Omniplane probe. Local and IV sedation were obtained by the clerk manager. The patient tolerated the procedure well without any obvious immediate complications. The INR prior to procedure is therapeutic at 2.0. FINDINGS: 1. Left atrial appendage. There is an echodense lesion noted within the left atrial appendage, suggestive of left atrial appendage thrombus. 2. Left atrium appears enlarged. 3. Right atrium and right ventricle seen within normal limits. 4. Left ventricle has normal size, shows diffuse global hypokinesis with mild LV dysfunction with an ejection fraction of 45% to 50%. 5. There is mild tricuspid regurgitation noted. 6. Aortic valve is a 3-leaflet valve. There is no evidence of aortic stenosis or regurgitation. 7. Aortic root measures normal. 8. Interatrial septum: There is no evidence of [id number]-ep-[id number] shunt by color-flow Doppler or fdtkq-oy-flgo shunt by agitated saline contrast study. CONCLUSION: Left atrial appendage thrombus noted. PLAN: I am going to cancel the cardioversion at this time. More optimally control her INR, try to keep the INR close to a 3 and add aspirin to what she is on and attempt cardioversion in 1 to 2 months' time. MMODL / IJN: [id number] /
[2023-04-06 08:43] VITALS: BP 115/71; PULSE 66; RESP 14
== END 2023-04-06 08:58 | disposition home or self-care (01) ==
LOC: OR 06:16
PROVIDERS: ATTEND Internal Medicine Cardiovascular Disease
DX: I48.19 Other persistent atrial fibrillation (principal); I51.3 Intracardiac thrombosis, not elsewhere classified; I36.1 Nonrheumatic tricuspid (valve) insufficiency
CPT/HCPCS: 93312; 93320; 93325; 85610; J2704; J2001

== ENCOUNTER 2023-06-13 07:02 | Day surgery (SDC) | payer MEDICARE ==
[2023-06-08 08:41] VITALS: BMI 37.9
[2023-06-13] MEDS ORDERED: LACTATED RINGERS 1,000 ML IV ONE ×2 (07:23→08:57)
[2023-06-13] MEDS ORDERED: LACTATED RINGERS 1,000 ML IV SCH (07:24)
[2023-06-13 07:39] LABS: Glucose,Whole Blood 99 mg/dL (70-110)
[2023-06-13 07:46] VITALS: RESP 16; TEMP 97.9
[2023-06-13 07:46] LABS: INR 2.4 (<1.2); Prothrombin Time 23.4 sec (9.0-12.0)
[2023-06-13 07:50] LABS: African American GFR (CKD) >90 (>60 ml/min/1.73 sqM); Anion Gap 6 mmol/L; Blood Urea Nitrogen 17 mg/dL (7-17); Calcium 8.7 mg/dL (8.4-10.2); Carbon Dioxide 27 mmol/L (22-30); Chloride 104 mmol/L (98-107); Glucose 100 mg/dL (74-99); Non-African American GFR(CKD) >90 (>60 ml/min/1.73 sqM); Potassium 4.5 mmol/L (3.5-5.1); Sodium 137 mmol/L (137-145)
[2023-06-13] MEDS ORDERED: BENZOCAINE SPRAY 1 CAN TOPICAL ONE (07:55)
[2023-06-13] MEDS ORDERED: PROPOFOL 10 MG/ML 20 ML VIAL IV ONE ×2 (08:03→08:50)
--- NOTE | 2023-06-13 08:45 | ECHOT ---
TRANSESOPHAGEAL ECHOCARDIOGRAM INDICATION: Persistent atrial fibrillation to rule out intracardiac thrombus prior to cardioversion. PROCEDURE NOTE: After obtaining informed consent, transesophageal echocardiogram was performed in left lateral position using an Omniplane probe. Local and IV sedation were obtained by the molding utility worker. FINDINGS: 1. There is no intracardiac thrombus within the left atrial appendage, left atrium, right atrium, right ventricle. 2. Left atrium appears enlarged. Right atrium and right ventricle appear mildly enlarged. 3. Left ventricle appears mildly dilated with diffuse global hypokinesis with mild LV dysfunction with an ejection fraction of 45% to 50%. Aortic valve is a 3-leaflet valve. There is no evidence of aortic regurgitation. 4. Aortic root pressure is within normal limits. Mitral valve is anatomically normal. There is mild central mitral regurgitation noted. Tricuspid valve shows mild tricuspid regurgitation. 5. Interatrial septum: There is no evidence of xrgg-dg-jnlkg shunt by color-flow Doppler or pbtzk-sq-vflr shunt by agitated saline contrast study. CONCLUSIONS: No intracardiac thrombus. PLAN: We will proceed with cardioversion. MMODL / IJN: [id number] /
--- NOTE | 2023-06-13 09:05 | PCN ---
PROCEDURE NOTE CARDIOVERSION NOTE: INDICATION: Persistent atrial fibrillation. After obtaining informed consent, making sure the patient does not have any intracardiac thrombus with a JEEVAN and adequate anticoagulation with INR, INR this morning was 2.4, we proceeded to perform cardioversion. She was shocked once with 150 joules of synchronized DC current and she converted to sinus rhythm. PLAN: We will leave her on her current medications including the Coumadin. She will be seen back in the office in a week's time. MMDES / PITERN: [id number] /
[2023-06-13 11:08] VITALS: BP 124/70; PULSE 62
--- NOTE | 2023-06-13 13:24 | PCN ---
PROCEDURE NOTE CARDIOVERSION NOTE: INDICATION: Persistent atrial fibrillation. HISTORY OF PRESENT ILLNESS: This is a 63-year-old lady whom I just cardioverted this morning, went back into atrial fibrillation again, so we sedated her and shocked her with 200 joules of synchronized DC current and she converted to sinus rhythm this time again. Hopefully, she will stain. She is adequately anticoagulated with Coumadin. INR is 2.4 and does not have a left atrial appendage thrombus on the JEEVAN. MMODL / IJN: [id number] /
== END 2023-06-13 11:09 | disposition home or self-care (01) ==
LOC: OR 07:02
PROVIDERS: ATTEND Internal Medicine Cardiovascular Disease
DX: I48.19 Other persistent atrial fibrillation (principal); I10 Essential (primary) hypertension; F17.210 Nicotine dependence, cigarettes, uncomplicated; Z82.49 Family history of ischemic heart disease and other diseases of the circulatory system; Z79.83 Long term (current) use of bisphosphonates; Z79.899 Other long term (current) drug therapy
CPT/HCPCS: 93312; 93320; 93325; 92960; 80048; 85610; J2704

== ENCOUNTER 2023-11-07 07:46 | Day surgery (SDC) | payer MEDICARE ==
[~2023-11-07 07:46] MED LIST changes: +SODIUM CHLORIDE 0.9% 1,000 ML IV SCH
[2023-11-07] MEDS ORDERED: SODIUM CHLORIDE 0.9% 1,000 ML IV ONE (08:17)
[2023-11-07 08:28] LABS: INR 4.4 (<1.2); Prothrombin Time 42.8 sec (10.0-12.5)
[2023-11-07 08:33] LABS: Basophils # (A) 0.1 k/uL (0-0.2); Basophils % (A) 1 %; Eosinophils # (A) 0.2 k/uL (0-0.7); Eosinophils % (A) 5 %; HCT 35.6 % (34.0-46.0); HGB 11.9 gm/dL (11.4-16.0); Lymphocytes # (A) 0.9 k/uL (1.0-4.8); Lymphocytes % (A) 20 %; MCH 30.3 pg (25.0-35.0); MCHC 33.3 g/dL (31.0-37.0); Mean Platelet Volume 7.2; Monocytes # (A) 0.3 k/uL (0-1.0); Monocytes % (A) 7 %; Neutrophils # (A) 2.8 k/uL (1.3-7.7); Neutrophils % (A) 64 %; Platelet Count 248 k/uL (150-450); RBC 3.92 m/uL (3.80-5.40); WBC 4.3 k/uL (3.8-10.6)
[2023-11-07 09:11] LABS: ALT 14 U/L (4-34); AST 21 U/L (14-36); African American GFR (CKD) 89 (>60 ml/min/1.73 sqM); Albumin 3.6 g/dL (3.5-5.0); Alkaline Phosphatase 99 U/L (38-126); Anion Gap 4 mmol/L; Blood Urea Nitrogen 15 mg/dL (7-17); Calcium 9.3 mg/dL (8.4-10.2); Carbon Dioxide 28 mmol/L (22-30); Chloride 107 mmol/L (98-107); Glucose 101 mg/dL (74-99); Non-African American GFR(CKD) 78 (>60 ml/min/1.73 sqM); Potassium 4.9 mmol/L (3.5-5.1); Sodium 139 mmol/L (137-145); Total Bilirubin 0.5 mg/dL (0.2-1.3); Total Protein 6.5 g/dL (6.3-8.2)
[2023-11-07] MEDS ORDERED: HEPARIN SOD,PORK IN 0.45% NACL 25,000 UNIT in 0.45% NACL 1 250ML.BAG IV ONE (09:50)
[2023-11-07] MEDS ORDERED: IOPAMIDOL-370 100ML BTL INJ ONE (11:58)
[2023-11-07] MEDS ORDERED: ACETAMINOPHEN IV (For NPO) 1,000 MG in EMPTY BAG 1 BAG IVPB ONE (12:25)
[2023-11-07] MEDS ORDERED: HYDROcodone/APAP 5-325MG 1 EACH TAB PO PRN (12:25)
--- NOTE | 2023-11-07 12:33 | P.HPCAR ---
History of Present Illness This is Dr. Marsh dictating an H/P on this patient The patient was interviewed and examined IMPRESSION / ASSESSMENT: Persistent atrial fibrillation despite treatment Mild cardio myopathy during atrial fibrillation Diagnoses and fatigue Failed electrical cardioversion Left atrial enlargement Right atrial enlargement PLAN: Diagnoses EP study in A. fib ablation HPI Patient continues to remain in atrial fibrillation. She recently underwent electrical cardioversion which showed biatrial enlargement and mild LV dysfunction She underwent electrical cardioversion but her atrial fibrillation recurred She complains of being tired and fatigued No fever chills cough, chest pain recently No syncope recently ROS: No fever chills or rigors, no cough, phlegm or expectoration, no nausea, vomiting or diarrhea, no hematuria, dysuria, no musculoskeletal complaints, no strokes or seizures, no skin lesions. EXAMINATION: Afebrile pulse rate in the 70s, blood pressure 181/87 mmHg Heart sounds irregular Breath sounds are clear no rhonchi no crackles No JVD Central obesity No lower extremity edema REVIEW OF LABS, ECG & MEDICAL DATA Hemoglobin 11.9 INR 4.4 INRs have been therapeutic in the office in the mid twos over the last 4-6 weeks line [place] lites are normal Physical Exam Vitals: Vital Signs Temp Pulse BP 11/07/23 08:14 181/87 11/07/23 08:03 98.5 F 72 Intake and Output 11/06/23 11/07/23 11/07/23 22:59 06:59 14:59 Intake Total 818 Balance 818 Intake: IV 818 Other: Weight 123.8 kg Past Medical History Past Medical History: Atrial Fibrillation, Cancer, Deep Vein Thrombosis (DVT), GERD/Reflux, Hyperlipidemia, Hypertension, Osteoarthritis (OA), Pulmonary Embolus (PE) Additional Past Medical History / Comment(s): Hx oral cancer 2003. Hx DVT & PE 12/2015 after back surgery. Hx ulcer. Occasional hypoglycemia. History of Any Multi-Drug Resistant Organisms: None Reported Past Surgical History: Appendectomy, Back Surgery, Bariatric Surgery, Bladder Surgery, Cardiac Ablation, Section, Cholecystectomy, Hysterectomy, Joint Replacement, Orthopedic Surgery, Tonsillectomy Additional Past Surgical History / Comment(s): AAA repaired SEVERAL cardioversion. Back surgery X2. Tubal .Bladder sling, then later removed. colonoscopy, parathyroid gland removed. right hip replacement, left knee arthroscopy,bilateral knee replacements. Gastric Bypass. Excision of left lateral tongue cancer. left thumb joint repair, JEEVAN. Past Anesthesia/Blood Transfusion Reactions: Postoperative Nausea & Vomiting (PONV) Additional Past Anesthesia/Blood Transfusion Reaction / Comment(s): PONV YEARS AGO. Past Psychological History: Anxiety, Depression Smoking Status: Former smoker, Vaper Past Alcohol Use History: Occasional Additional Past Alcohol Use History / Comment(s): Started smoking at age 15, quit from [id number], now vaping, 1 cartridge per week. Past Drug Use History: None Reported - Past Family History Father Family Medical History: Cancer Additional Family Medical History / Comment(s): Bladder cancer, CABG. Brother(s) Additional Family Medical History / Comment(s): CABG. Sister(s) Additional Family Medical History / Comment(s): PacemakerMD. Physical Examination Vital Signs Temp Pulse BP 11/07/23 08:14 181/87 11/07/23 08:03 98.5 F 72 Intake and Output 11/06/23 11/07/23 11/07/23 22:59 06:59 14:59 Intake Total 818 Balance 818 Intake: IV 818 Other: Weight 123.8 kg Results 11/07/23 08:00 11/07/23 08:00 Cardiac Enzymes 11/07/23 Range/Units 08:00 AST 21 (14-36) U/L Coagulation 11/07/23 Range/Units 08:00 PT 42.8 H (10.0-12.5) sec CBC 11/07/23 Range/Units 08:00 WBC 4.3 (3.8-10.6) k/uL RBC 3.92 (3.80-5.40) m/uL Hgb 11.9 (11.4-16.0) gm/dL Hct 35.6 (34.0-46.0) % Plt Count 248 (150-450) k/uL Comprehensive Metabolic Panel 11/07/23 Range/Units 08:00 Sodium 139 (137-145) mmol/L Potassium 4.9 (3.5-5.1) mmol/L Chloride 107 (98-107) mmol/L Carbon Dioxide 28 (22-30) mmol/L BUN 15 (7-17) mg/dL Creatinine 0.81 (0.52-1.04) mg/dL Glucose 101 H (74-99) mg/dL Calcium 9.3 (8.4-10.2) mg/dL AST 21 (14-36) U/L ALT 14 (4-34) U/L Alkaline Phosphatase 99 (38-126) U/L Total Protein 6.5 (6.3-8.2) g/dL Albumin 3.6 (3.5-5.0) g/dL Current Medications Generic Name Dose Route Start Last Admin Trade Name Freq PRN Reason Stop Dose Admin Acetaminophen 650 mg 11/07/23 12:25 Acetaminophen Tab 325 Mg Tab PO Q6HR PRN Mild Pain (Scale 1 to 3) Hydrocodone Bitart/Acetaminophen 1 each 11/07/23 12:25 Hydrocodone/Apap 5-325mg 1 Each Tab PO Q4HR PRN Moderate Pain (Scale 4 to 6) Duloxetine HCl 60 mg 11/08/23 09:00 Duloxetine Hcl 60 Mg Capsule. [facility] [place] Gabapentin 600 mg 11/08/23 09:00 Gabapentin 300 Mg Cap [facility] [place] Acetaminophen 1,000 mg/ IV 100 mls @ 400 mls/hr 11/07/23 12:25 Solution IVPB 11/07/23 12:39 ONCE ONE Lisinopril 10 mg 11/08/23 09:00 Lisinopril 10 Mg Tab [facility] [place] Patient's Own ( 50 mg 11/08/23 09:00 Mirabegron [ PO Myrbetriq] 50 Mg Tab DAILY FARIDEH .Er.24h) Non-Formulary Medication 5 mg 11/08/23 09:00 Rosuvastatin Calcium [Rosuvastatin Calcium] [facility] [place] Pantoprazole Sodium 40 mg 11/08/23 09:00 Pantoprazole 40 Mg Tablet [facility] [place] Sertraline HCl 150 mg 11/08/23 09:00 Sertraline 100 Mg Tab PO DAILY [facility] Sodium Chloride 12 ml 11/07/23 12:25 Sodium Chloride 0.9% Flush 10 Ml Syringe IV Q12HR PRN Line Flush Intake and Output 11/06/23 11/07/23 11/07/23 22:59 06:59 14:59 Intake Total 818 Balance 818 Intake: IV 818 Other: Weight 123.8 kg Patient Weight 11/08/23 06:59 Weight 123.8 kg 11/07/23 08:00 11/07/23 08:00
--- NOTE | 2023-11-07 12:40 | P.EPPROC ---
- EP Procedure Note Electrophysiology Procedure Note: PROCEDURE A. fib ablation DIAGNOSIS Persistent Atrial fibrillation, symptomatic, refractory to therapy RESULT No left atrial appendage mass seen on intracardiac echo, mild cardiomyopathy during atrial fibrillation Prominent pericardial stripe posterior LV PVI of right inferior and left inferior pulmonary veins Left superior and will right superior pulmonary veins were already isolate Ablation of the left atrial roof with termination of tachycardia, left atrial roof tachycardia Complete entrance block in all 4 veins confirmed No evidence for phrenic nerve injury Esophageal deflection NO, patient has had gastric bypass with Fabian-en-Y in the past PROCEDURE DETAILS Written informed consent prior to procedure. Patient brought to the EP lab. General anesthesia given. Heparin administered. A city maintained above 300 seconds Both groins prepped and draped per protocol and venous sheaths placed. Esophagus intubated, circa catheter for temperature monitoring an endoscope for possible esophageal deflection. Phrenic nerve monitoring performed. Esophageal temperature monitoring performed. Esophageal deflection performed if circa catheter overlapping with the balloon or circa temperature less than 27.5C Intracardiac echocardiography performed. Pericardium evaluated. Left atrial appendage evaluated. Left atrium evaluated along with pulmonary veins Transseptal catheterization performed under fluoroscopic guidance and intracardiac echo guidance Cryoablation sheath exchanged, balloon catheter along with achieve catheter placed in the left atrium. CS catheter revealed an atrial tachycardia, left-sided Pulmonary veins in the following sequence: Left superior pulmonary vein followed by left inferior pulmonary vein, followed by right inferior pulmonary vein and lastly right superior pulmonary vein. Superior pulmonary veins were already isolated Phrenic nerve stimulation along with capture thresholds within the SVC and right superior pulmonary vein to identify the phrenic nerve proximity to the cryo- balloon. Both lower Pulmonary veins isolated and confirmed with entrance and exit block. Phrenic nerve integrity confirmed at the end of the procedure Ablation of the left atrial roof performed with sequential lesions from the left superior to the right superior pulmonary veins. Ablation of the electrograms confirmed This resulted in termination of the tachycardia Diagnostic catheters for the high right atrium, His bundle, coronary sinus placed. LA and RA pressures recorded RA pressure: 15/10/13 LA pressure: 29/5/18 Diagnostic EP study with coronary sinus pacing and recording Baseline measurements: AH 65, HV 56 MO interval 146, QRS 133 and QT interval 440 Sinus recovery times at 600 ms were 1674 ms. Corresponding corrected sinus node recovery time was prolonged AV node Wenckebach block 540 ms VA Wenckebach block greater than 600 ms Venous sheaths were removed and hemostasis assured with a closure device. Patient extubated and transferred to recovery PROCEDURES PERFORMED Diagnostic EP study CS pacing and recording Left and right transseptal catheterization Catheter the mapping of the tachycardia Intracardiac echocardiography Pulmonary vein isolation with transseptal and comprehensive EPS, 76339 Ablation of discrete arrhythmia focus, +99996
[2023-11-08] MEDS ORDERED: SODIUM CHLORIDE 0.9% 500 ML 250 ML IV ONE ×2 (04:20→04:54)
[2023-11-08 06:35] LABS: INR 4.2 (<1.2); Prothrombin Time 40.7 sec (10.0-12.5)
[2023-11-08] MEDS ORDERED: SODIUM CHLORIDE 0.9% 500 ML 500 ML IV ONE (08:09)
[2023-11-08] MEDS ORDERED: lisinopriL 10 MG TAB PO SCH (09:00)
[2023-11-08] MEDS: DULoxetine HCL 60 MG CAPSULE.DR PO SCH (09:59)
[2023-11-08] MEDS: SODIUM CHLORIDE 0.9% 250 ML IV SCH ×5 (09:59→17:56)
[2023-11-08] MEDS: PANTOPRAZOLE 40 MG TABLET PO SCH (09:59)
[2023-11-08] MEDS: SERTRALINE 100 MG TAB PO SCH (09:59)
[2023-11-08] MEDS: ATORVASTATIN 10 MG TAB PO SCH (09:59)
[2023-11-08] MEDS: PATIENT'S OWN (Mirabegron [Myrbetriq] 50 MG Tab.Er.24h) PO SCH (10:00)
[2023-11-08] MEDS: GABAPENTIN 300 MG CAP PO SCH (10:07)
--- NOTE | 2023-11-08 10:33 | CA ---
Transthoracic Echo Report Name: Ellie Garibay Age: 63 Gender: F : 1960 Exam Date: 11/08/2023 08:04 Exam Location: [facility] Ht (in): 68 Wt (lb): 272 Ordering Physician: Cullen Marsh MD ([id number]) Attending/Referring Phys: Tattoo Technician Candace Pérez RDCS Procedure CPT: Indications: physician order Cardiac Hx: Technical Quality: Fair Contrast 1: Total Dose (mL): Contrast 2: Total Dose (mL): MEASUREMENTS (Male / Female) Normal Values 2D ECHO LV Diastolic Diameter PLAX 4.1 cm 4.2 - 5.9 / 3.9 - 5.3 cm LV Systolic Diameter PLAX 2.4 cm IVS Diastolic Thickness 1.3 cm 0.6 - 1.0 / 0.6 - 0.9 cm LVPW Diastolic Thickness 1.2 cm 0.6 - 1.0 / 0.6 - 0.9 cm LV Relative Wall Thickness 0.6 LA Volume 84.6 cm??? 18 - 58 / 22 - 52 cm??? LA Volume Index 34.0 cm???/m??? 16 - 28 cm???/m??? M-MODE Aortic Root Diameter MM 3.2 cm LA Systolic Diameter MM 4.1 cm LA Ao Ratio MM 1.3 AV Cusp Separation MM 1.7 cm DOPPLER AV Peak Velocity 145.8 cm/s AV Peak Gradient 8.5 mmHg AV Mean Velocity 104.3 cm/s AV Mean Gradient 4.8 mmHg AV Velocity Time Integral 28.6 cm LVOT Peak Velocity 92.4 cm/s LVOT Peak Gradient 3.4 mmHg LVOT Velocity Time Integral 23.7 cm MV Area PHT 4.3 cm??? Mitral E Point Velocity 124.1 cm/s Mitral A Point Velocity 50.7 cm/s Mitral E to A Ratio 2.4 MV Deceleration Time 175.2 ms MV E' Velocity 6.2 cm/s Mitral E to MV E' Ratio 20.1 TR Peak Velocity 225.4 cm/s TR Peak Gradient 20.3 mmHg Right Ventricular Systolic Press 25.2 mmHg FINDINGS Left Ventricle Mildly increased left ventricular wall thickness. No obvious regional wall motion abnormalities. Left ventricular ejection fraction is estimated at 50-55 %. Right Ventricle Mild right ventricular dilatation. Right ventricular systolic pressure within normal limits. Right Atrium Normal right atrial size. Left Atrium Mildly increased left atrial volume. Mildly increased left atrial area. Mitral Valve Structurally normal mitral valve. Mild mitral annular calcification. Mild mitral regurgitation. Aortic Valve Trileaflet aortic valve. No aortic valve stenosis or regurgitation. Tricuspid Valve Structurally normal tricuspid valve. Mild tricuspid regurgitation. Pulmonic Valve Structurally normal pulmonic valve. Pericardium No pericardial effusion. Aorta Normal size aortic root and proximal ascending aorta. CONCLUSIONS Normal LV size and function Mildly enlarged right ventricle No pericardial effusion Prominent posterior pericardial stripe consistent with possible old pericarditis Previewed by: Dr. Cullen Marsh MD (Electronically Signed) Final Date: 08 November 2023 10:32
--- NOTE | 2023-11-08 10:45 | P.PN ---
Subjective HISTORY OF PRESENT ILLNESS: This is a 63-year-old female who underwent A. fib ablation yesterday with Dr. Marsh. Patient examined this morning to bedside. Patient denies chest pain or pressure. Denies shortness of breath. Patient's blood pressure has been low overnight and this morning with a systolic down into the 70s. Most recent blood pressure 103/62. Patient's INR today is 4.2. Echocardiogram performed this m orning reveals normal LV size and function with no pericardial effusion noted. Patient maintaining sinus mechanism this morning. PHYSICAL EXAM: VITAL SIGNS: Reviewed. GENERAL: Well-developed in no acute distress. NECK: Supple. No JVD or thyromegaly LUNGS: Respirations even and unlabored. Lungs essentially clear to auscultation bilaterally. HEART: Regular rate and rhythm. S1 and S2 heard. EXTREMITIES: Normal range of motion. No clubbing or cyanosis. Peripheral pulses intact. No lower extremity edema ASSESSMENT: Persistent atrial fibrillation, status post A. fib ablation Supratherapeutic INR Hypotension PLAN: Hold Coumadin. Monitor INR. Give 250 mL bolus of normal saline this morning Discontinue lisinopril Discontinue metoprolol Continue to monitor blood pressure Continue to monitor patient for an additional 24 hours Further recommendations pending patient course Nurse practitioner note has been reviewed by physician. Signing provider agrees with the documented findings, assessment, and plan of care. Objective - Vital Signs Vital signs: Vital Signs Temp 97.9 F 11/08/23 07:00 Pulse 69 11/08/23 07:00 Resp 20 11/08/23 07:00 BP 103/62 11/08/23 07:00 Pulse Ox 20 L 11/08/23 07:00 FiO2 Intake & Output 11/07/23 11/08/23 11/08/23 18:59 06:59 18:59 Intake Total 986 120 Balance 986 120 Weight 123.8 kg Intake: IV 868 Oral 118 120 Other: # Voids 3 - Labs CBC & Chem 7: 11/07/23 08:00 11/07/23 08:00 Labs: Abnormal Lab Results - Last 24 Hours (Table) 11/08/23 Range/Units 05:51 PT 40.7 H (10.0-12.5) sec INR 4.2 H (<1.2)
[2023-11-08] MEDS: ACETAMINOPHEN TAB 325 MG TAB PO PRN ×2 (11:38→23:36)
[2023-11-09 05:23] VITALS: PULSE 75; RESP 16
[2023-11-09 08:05] VITALS: BP 113/72; TEMP 98.3
[2023-11-09] MEDS: GABAPENTIN 300 MG CAP PO SCH (09:47)
[2023-11-09] MEDS: DULoxetine HCL 60 MG CAPSULE.DR PO SCH (09:48)
[2023-11-09] MEDS: ATORVASTATIN 10 MG TAB PO SCH (09:48)
[2023-11-09] MEDS: SERTRALINE 100 MG TAB PO SCH (09:48)
[2023-11-09] MEDS: PANTOPRAZOLE 40 MG TABLET PO SCH (09:48)
[2023-11-09] MEDS: PATIENT'S OWN (Mirabegron [Myrbetriq] 50 MG Tab.Er.24h) PO SCH (09:49)
[2023-11-09 10:07] LABS: INR 2.72 sec (0.93-1.11); Prothrombin Time 27.5 sec (9.9-11.9)
--- NOTE | 2023-11-09 10:11 | P.DS ---
Providers Attending physician: Cullen Marsh Primary care physician: Cordelia Jackson [facility] Course: HISTORY OF PRESENT ILLNESS: This is a 63-year-old female who underwent A. fib ablation yesterday with Dr. Marsh. Patient examined this morning to bedside. Patient denies chest pain or pressure. Denies shortness of breath. Patient's blood pressure has been low overnight and this morning with a systolic down into the 70s. Most recent blood pressure 103/62. Patient's INR today is 4.2. Echocardiogram performed this morning reveals normal LV size and function with no pericardial effusion noted. Patient maintaining sinus mechanism this morning. 11/09/2023 Patient examined this morning at the bedside. Patient denies chest pain or pressure. She denies shortness of breath. Patient's blood pressure has improved. Her lisinopril and metoprolol remain on hold and are to be continued to be held upon discharge. Patient's INR is 2.7 today. She will resume Coumadin tonight with a dose of 5 mg daily. Patient was deemed stable for discharge home today from a cardiac standpoint. She is to follow up on an outpatient basis. Discharge Diagnosis: Persistent atrial fibrillation, status post A. fib ablation Supratherapeutic INR Hypotension Nurse practitioner note has been reviewed by physician. Signing provider agrees with the documented findings, assessment, and plan of care. Plan - Discharge Summary Discharge Rx Participant: No New Discharge Prescriptions: Changed Warfarin [Coumadin] 5 mg PO DAILY #0 Discontinued lisinopriL [Zestril] 10 mg PO QAM Metoprolol Tartrate [Lopressor] 75 mg PO QAM Warfarin [Coumadin] 7.5 mg PO TH No Action Lansoprazole [Prevacid] 15 mg PO QAM DULoxetine HCL [Cymbalta] 60 mg PO QAM Cyanocobalamin [Vitamin B-12 Injection] 1,000 mcg SQ QMONTH Sertraline [Zoloft] 150 mg PO DAILY Gabapentin 600 mg PO QAM Acetaminophen/Diphenhydramine [Acetaminophen Pm Geltab] 1 each PO DIRECTED PRN PRN Reason: Pain Mirabegron [Myrbetriq] 50 mg PO DAILY Aspirin 325 mg PO DAILY Rosuvastatin Calcium 5 mg PO QAM Discharge Medication List Lansoprazole [Prevacid] 15 mg PO QAM 07/25/17 [History] Cyanocobalamin [Vitamin B-12 Injection] 1,000 mcg SQ QMONTH 12/28/18 [History] DULoxetine HCL [Cymbalta] 60 mg PO QAM 12/28/18 [History] Sertraline [Zoloft] 150 mg PO DAILY 06/10/20 [History] Gabapentin 600 mg PO QAM 07/15/20 [History] Acetaminophen/Diphenhydramine [Acetaminophen Pm Geltab] 1 each PO DIRECTED PRN 04/03/23 [History] Mirabegron [Myrbetriq] 50 mg PO DAILY 04/03/23 [History] Aspirin 325 mg PO DAILY 06/08/23 [History] Rosuvastatin Calcium 5 mg PO QAM 11/01/23 [History] Warfarin [Coumadin] 5 mg PO DAILY #0 11/09/23 [Rx] Follow up Appointment(s)/Referral(s): Tiago Romero MD [STAFF PHYSICIAN] - 1 Week Activity/Diet/Wound Care/Special Instructions: TAKE 5MG OF COUMADIN EVERYDAY STARTING TONIGHT Check INR in 7-10 days
== END 2023-11-09 12:17 | disposition home or self-care (01) ==
LOC: CATHEP 07:46 → 6NMEDSUR 12:00 → CATHEP 11-09 12:17
PROVIDERS: ATTEND Internal Medicine Clinical Cardiac Electrophysiology
DX: I08.1 Rheumatic disorders of both mitral and tricuspid valves (principal); I48.19 Other persistent atrial fibrillation; I42.9 Cardiomyopathy, unspecified; I11.0 Hypertensive heart disease with heart failure; K21.9 Gastro-esophageal reflux disease without esophagitis; E78.5 Hyperlipidemia, unspecified; M19.90 Unspecified osteoarthritis, unspecified site; F41.9 Anxiety disorder, unspecified; F32.A Depression, unspecified; F10.90 Alcohol use, unspecified, uncomplicated; F17.290 Nicotine dependence, other tobacco product, uncomplicated; Z86.718 Personal history of other venous thrombosis and embolism; Z86.711 Personal history of pulmonary embolism; Z85.819 Personal history of malignant neoplasm of unspecified site of lip, oral cavity, and pharynx; Z90.49 Acquired absence of other specified parts of digestive tract; Z90.710 Acquired absence of both cervix and uterus; Z98.84 Bariatric surgery status; Z98.890 Other specified postprocedural states; Z79.1 Long term (current) use of non-steroidal anti-inflammatories (NSAID); Z79.899 Other long term (current) drug therapy
CPT/HCPCS: 93306; 93656; 93657; 86900; 86901; 80053; 84443; 85025; 85610 ×3; 86850; C1894 ×2; C1769 ×3; C1760; C1730 ×2; C1759; C1893; C1733; C1766; J0131; Q9967; J1644

== ENCOUNTER 2023-12-28 15:37 | Emergency (ER) | payer MEDICARE ==
--- NOTE | 2023-12-28 16:33 | ED ---
Chest Pain HPI - General Chief Complaint: Chest Pain Stated Complaint: Chest pain-right side but travels/SOB Time Seen by Provider: 12/28/23 15:57 Source: patient, RN notes reviewed, old records reviewed Mode of arrival: ambulatory Limitations: no limitations - History of Present Illness Initial Comments: This is a 63-year-old female to ER for right-sided chest pain chest pain that she noticed yesterday, noticed when she woke up today and the note is driving in her car today. She called her angle furnaceman who advised her to come to the hospital. Patient presents to emergency room with right-sided chest pain and twinging sharp pain which is episodic. No travel history no sick contacts no fevers MD Complaint: chest pain -: hour(s) Onset: during rest, during exertion Pain Location: right chest Pain Radiation: none Severity: moderate Severity scale (1-10): 4 Quality: sharp Consistency: intermittent Improves With: nothing Worsens With: nothing Anginal Symptoms: dyspnea, sense of impending doom Other Symptoms: palpitations Treatments Prior to Arrival: none - Related Data Home Medications Medication Instructions Recorded Confirmed Lansoprazole [Prevacid] 15 mg PO DAILY 07/25/17 12/28/23 Cyanocobalamin [Vitamin B-12 1,000 mcg SQ Q30D 12/28/18 12/28/23 Injection] DULoxetine HCL [Cymbalta] 60 mg PO DAILY 12/28/18 12/28/23 Sertraline [Zoloft] 100 mg PO DAILY 06/10/20 12/28/23 Gabapentin 600 mg PO DAILY 07/15/20 12/28/23 Mirabegron [Myrbetriq] 50 mg PO DAILY 04/03/23 12/28/23 Aspirin 325 mg PO DAILY 06/08/23 12/28/23 Rosuvastatin Calcium 5 mg PO DAILY 11/01/23 12/28/23 Warfarin [Coumadin] 5 mg PO SUTUWEFRSA 12/28/23 12/28/23 Warfarin [Coumadin] 7.5 mg PO MOTH 12/28/23 12/28/23 buPROPion XL [Wellbutrin XL] 300 mg PO DAILY 12/28/23 12/28/23 lisinopriL [Zestril] 10 mg PO DAILY 12/28/23 12/28/23 Allergies Allergy/AdvReac Type Severity Reaction Status Date / Time No Known Allergies Allergy Verified 12/28/23 17:27 Review of Systems ROS Statement: Those systems with pertinent positive or pertinent negative responses have been documented in the HPI. ROS Other: All systems not noted in ROS Statement are negative. EKG Findings - EKG Comments: EKG Findings:: EKG is sinus 83 LA 165 QRS 130 QTc 411 - EKG Results: EKG: interpreted by WILL Past Medical History Past Medical History: Atrial Fibrillation, Cancer, Deep Vein Thrombosis (DVT), GERD/Reflux, Hyperlipidemia, Hypertension, Osteoarthritis (OA), Pulmonary Embolus (PE) Additional Past Medical History / Comment(s): Hx oral cancer 2003. Hx DVT & PE 12/2015 after back surgery. Hx ulcer. Occasional hypoglycemia. History of Any Multi-Drug Resistant Organisms: None Reported Past Surgical History: Appendectomy, Back Surgery, Bariatric Surgery, Bladder Surgery, Cardiac Ablation, Section, Cholecystectomy, Hysterectomy, Joint Replacement, Orthopedic Surgery, Tonsillectomy Additional Past Surgical History / Comment(s): AAA repaired SEVERAL cardioversion. Back surgery X2. Tubal .Bladder sling, then later removed. colonoscopy, parathyroid gland removed. right hip replacement, left knee arthroscopy,bilateral knee replacements. Gastric Bypass. Excision of left lateral tongue cancer. left thumb joint repair, JEEVAN. Past Anesthesia/Blood Transfusion Reactions: Postoperative Nausea & Vomiting (PONV) Additional Past Anesthesia/Blood Transfusion Reaction / Comment(s): PONV YEARS AGO. Past Psychological History: Anxiety, Depression Smoking Status: Former smoker, Vaper Past Alcohol Use History: Occasional Past Drug Use History: None Reported - Past Family History Father Family Medical History: Cancer Additional Family Medical History / Comment(s): Bladder cancer, CABG. Brother(s) Additional Family Medical History / Comment(s): CABG. Sister(s) Additional Family Medical History / Comment(s): PacemakerMD. General Exam Limitations: no limitations General appearance: alert, in no apparent distress Head exam: Present: atraumatic, normocephalic, normal inspection Eye exam: Present: normal appearance, PERRL, EOMI. Absent: scleral icterus, conjunctival injection, periorbital swelling ENT exam: Present: normal exam, mucous membranes moist Neck exam: Present: normal inspection. Absent: tenderness, meningismus, lymphadenopathy Respiratory exam: Present: normal lung sounds bilaterally. Absent: respiratory distress, wheezes, rales, rhonchi, stridor Cardiovascular Exam: Present: regular rate, normal rhythm, normal heart sounds. Absent: systolic murmur, diastolic murmur, rubs, gallop, clicks GI/Abdominal exam: Present: soft, normal bowel sounds. Absent: distended, tenderness, guarding, rebound, rigid Extremities exam: Present: normal inspection, full ROM, normal capillary refill. Absent: tenderness, pedal edema, joint swelling, calf tenderness Back exam: Present: normal inspection Neurological exam: Present: alert, oriented X3, CN II-XII intact Psychiatric exam: Present: normal affect, normal mood Skin exam: Present: warm, dry, intact, normal color. Absent: rash Course Vital Signs 12/28/23 12/28/23 12/28/23 15:48 16:03 19:07 Temperature 98.4 F 98.2 F Pulse Rate 87 84 82 Respiratory 16 16 18 Rate Blood Pressure 136/85 146/83 161/77 O2 Sat by Pulse 98 95 97 Oximetry - Reevaluation(s) Reevaluation #1: 12/28/23 18:10 Records reviewed Reevaluation #2: 12/28/23 18:10 Patient symptoms unchanged Reevaluation #3: 12/28/23 18:10 Patient informed of results questions answered Studies CXR negative for acute disease Reevaluation #4: Was pt. sent in by a medical professional or institution (, PA, MUSEUM PREPARATOR, urgent care, hospital, or [facility]...) When possible be specific @ -no Did you speak to anyone other than the patient for history (EMS, parent, family, police, friend...)? What history was obtained from this source @ -no Did you review nursing and triage notes (agree or disagree)? Why? @ -agree Are old charts reviewed (outside hosp., previous admission, EMS record, old EKG, old radiological studies, urgent care reports/EKG's, [facility] records)? Report findings @ -yes Differential Diagnosis (chest pain, altered mental status, abdominal pain women, abdominal pain men, vaginal bleeding, weakness, fever, dyspnea, syncope, headache, dizziness, GI bleed, back pain, seizure, CVA, palpatations, mental health, musculoskeletal)? @ -prior EKG interpreted by me (3pts min.). @ -yes X-rays interpreted by me (1pt min.). @ -yes negative for acute disease CT interpreted by me (1pt min.). @ -no U/S interpreted by me (1pt. min.). @ -no What testing was considered but not performed or refused? (CT, X-rays, U/S, labs)? Why? @ -none What meds were considered but not given or refused? Why? @ -none Did you discuss the management of the patient with other professionals (professionals i.e. , PA, MUSEUM PREPARATOR, lab, RT, psych nurse, social services technician, well logging captain, teacher, professional security officer, case advocate)? Give summary @ -no Was smoking cessation discussed for >3mins.? @ -no Was critical care preformed (if so, how long)? @ -no Were there social determinants of health that impacted care today? How? (Homelessness, low income, unemployed, alcoholism, drug addiction, transportation, low edu. Level, literacy, decrease access to med. care, [facility], rehab)? @ -none Was there de-escalation of care discussed even if they declined (Discuss DNR or withdrawal of care, Hospice)? DNR status @ -no What co-morbidities impacted this encounter? (DM, HTN, Smoking, COPD, CAD, Cancer, CVA, ARF, Chemo, Hep., AIDS, mental health diagnosis, sleep apnea, morbid obesity)? @ -none Was patient admitted / discharged? Hospital course, mention meds given and route, prescriptions, significant lab abnormalities, going to OR and other pertinent info. @ - 63 female to the ER for evaluation today. Patient was today for evaluation regards to chest pain. Normal troponin normal EKG no other complaints patient can be discharged home Discharged Undiagnosed new problem with uncertain prognosis? @ -no Drug Therapy requiring intensive monitoring for toxicity (Heparin, Nitro, Insulin, Cardizem)? @ -no Were any procedures done? @ -no Diagnosis/symptom? @ -Chest Pain NOS Acute, or Chronic, or Acute on Chronic? @ -Acute Uncomplicated (without systemic symptoms) or Complicated (systemic symptoms)? @ -Complicated Side effects of treatment? @ -no Exacerbation, Progression, or Severe Exacerbation? @ -exacerbation Poses a threat to life or bodily function? How? (Chest pain, [place], [place], pneumonia, PE, COPD, DKA, ARF, appy, cholecystitis, CVA, Diverticulitis, Homicidal, Suicidal, threat to staff... and all critical care pts) @ -yes with chest pain Reevaluation #5: Differential Chest Pain: Stable Angina, Unstable Angina, STEMI, NSTEMI Aortic Dissection, Pneumothorax, Musculoskeletal, Esophageal Spasm GERD, Cholecystitis, Pancreatitis, Zoster, this is not meant to be an all-inclusive list. Chest Pain MDM - MDM 63 female to the ER for evaluation today. Patient was today for evaluation regards to chest pain. Normal troponin normal EKG no other complaints patient can be discharged home Disposition Clinical Impression: Chest pain, Atypical chest pain Disposition: HOME SELF-CARE Condition: Good Instructions (If sedation given, give patient instructions): Chest Pain (ED) Is patient prescribed a controlled substance at d/c from ED?: No Referrals: Shirley Ramsey NPC [REFERRING] - 1-2 days Time of Disposition: 18:00
[2023-12-28] MEDS ORDERED: MORPHINE SULFATE 4 MG/ML SYRINGE IV STA (16:47)
[2023-12-28 17:10] LABS: Basophils % (A) 1 %; Eosinophils # (A) 0.3 k/uL (0-0.7); Eosinophils % (A) 7 %; HCT 32.3 % (34.0-46.0); HGB 10.5 gm/dL (11.4-16.0); Hypochromasia Slight; Lymphocytes # (A) 0.9 k/uL (1.0-4.8); Lymphocytes % (A) 19 %; MCH 29.7 pg (25.0-35.0); MCHC 32.4 g/dL (31.0-37.0); MCV 91.6 fL (80.0-100.0); Mean Platelet Volume 7.2; Monocytes # (A) 0.4 k/uL (0-1.0); Monocytes % (A) 9 %; Neutrophils % (A) 62 %; Platelet Count 275 k/uL (150-450); RBC 3.52 m/uL (3.80-5.40); RDW 15.1 % (11.5-15.5); WBC 4.8 k/uL (3.8-10.6)
[2023-12-28 17:23] LABS: ALT 13 U/L (4-34); AST 28 U/L (14-36); African American GFR (CKD) >90 (>60 ml/min/1.73 sqM); Albumin 3.6 g/dL (3.5-5.0); Alkaline Phosphatase 107 U/L (38-126); Anion Gap 7 mmol/L; Blood Urea Nitrogen 10 mg/dL (7-17); Calcium 9.2 mg/dL (8.4-10.2); Carbon Dioxide 25 mmol/L (22-30); Chloride 107 mmol/L (98-107); Glucose 94 mg/dL (74-99); Lipase 41 U/L (23-300); Non-African American GFR(CKD) >90 (>60 ml/min/1.73 sqM); Potassium 4.4 mmol/L (3.5-5.1); Sodium 139 mmol/L (137-145); Total Bilirubin 0.2 mg/dL (0.2-1.3); Total Protein 6.3 g/dL (6.3-8.2)
[2023-12-28 17:25] LABS: Partial Thromboplastin Time 29.1 sec (22.0-30.0); Prothrombin Time 20.2 sec (10.0-12.5)
[2023-12-28 17:30] LABS: NT-Pro-B-Type Natriuretic Pept 243 pg/mL
--- NOTE | 2023-12-28 19:15 | XR ---
EXAMINATION: XR chest 1V portable DATE AND TIME: 12/28/2023 6:28 PM CLINICAL INDICATION: PHH; chest pain TECHNIQUE: Departmental protocol COMPARISON: None FINDINGS: The lungs are clear. The pleural spaces are negative; the right costophrenic angle not included on the radiograph. The cardiac silhouette is not enlarged. The remainder of the mediastinal silhouette is unremarkable. The skeletal structures and soft tissues are negative for acute findings. IMPRESSION: NO ACUTE PROCESS.
[2023-12-28 19:30] VITALS: BP 161/77; PULSE 82; RESP 18; TEMP 98.2
== END 2023-12-28 19:07 | disposition home or self-care (01) ==
LOC: EC 15:37
DX: R07.89 Other chest pain (principal); I48.91 Unspecified atrial fibrillation; K21.9 Gastro-esophageal reflux disease without esophagitis; E78.5 Hyperlipidemia, unspecified; I10 Essential (primary) hypertension; F41.9 Anxiety disorder, unspecified; F32.A Depression, unspecified; F17.290 Nicotine dependence, other tobacco product, uncomplicated; Z79.899 Other long term (current) drug therapy; Z79.02 Long term (current) use of antithrombotics/antiplatelets
CPT/HCPCS: 36415; 71045; 80053; 83690; 83735; 83880; 84484; 85025; 85379; 85610; 85730; 99285

== ENCOUNTER 2024-02-13 12:05 | Observation (INO) | payer MEDICARE ==
--- NOTE | 2024-02-13 13:15 | XR ---
EXAMINATION TYPE: XR chest 2V DATE OF EXAM: 02/13/2024 COMPARISON: 12/28/2023 HISTORY: 63 year-old female shortness of breath, dizziness, difficulty breathing TECHNIQUE: PA and lateral views FINDINGS: The cardiomediastinal silhouette, aorta, and pulmonary vasculature are within normal limits. No conso lidation or pleural effusion. IMPRESSION: No acute cardiopulmonary process.
--- NOTE | 2024-02-13 13:27 | ED ---
SOB HPI - General Source: patient, RN notes reviewed Mode of arrival: wheelchair <Ceci Liz - Last Filed: 02/13/24 13:27> <Antonio Luna - Last Filed: 02/13/24 16:41> - General Chief Complaint: Shortness of Breath Stated Complaint: SOB Time Seen by Provider: 02/13/24 12:20 - History of Present Illness Initial Comments: Shannan notethis is a 63-year-old female with a history of A-fib on Coumadin presents emergency department chief complaint of lightheadedness and shortness of breath that started this morning. Patient states that she had a wobbly sensation and felt lightheaded and short of breath while she was moving around this morning. Patient states that she has been not taking her Coumadin as prescribed due to procedures but was held. Patient states that her last INR was checked over 5 days ago. (Ceci Liz) This is a 63-year-old female with a past medical history significant for atrial fibrillation high blood pressure high cholesterol and a smoking history and now vaping history. Patient also has a family history of heart disease. Patient states she recently had a stress test and a echo and was told there was some dysfunction so she was to get a cardiac catheterization. Patient states today while she was working she had some exertional dyspnea that lasted for hours so she decided to come to the emergency department. Patient denies any fever chills or cough. Patient has any chest pain or palpitations. Patient has any headache patient denies lightheadedness or dizziness. (Antonio Luna) - Related Data Home Medications Medication Instructions Recorded Confirmed Lansoprazole [Prevacid] 15 mg PO DAILY 07/25/17 12/28/23 Cyanocobalamin [Vitamin B-12 1,000 mcg SQ Q30D 12/28/18 12/28/23 Injection] DULoxetine HCL [Cymbalta] 60 mg PO DAILY 12/28/18 12/28/23 Sertraline [Zoloft] 100 mg PO DAILY 06/10/20 12/28/23 Gabapentin 600 mg PO DAILY 07/15/20 12/28/23 Mirabegron [Myrbetriq] 50 mg PO DAILY 04/03/23 12/28/23 Aspirin 325 mg PO DAILY 06/08/23 12/28/23 Rosuvastatin Calcium 5 mg PO DAILY 11/01/23 12/28/23 Warfarin [Coumadin] 5 mg PO SUTUWEFRSA 12/28/23 12/28/23 Warfarin [Coumadin] 7.5 mg PO MOTH 12/28/23 12/28/23 buPROPion XL [Wellbutrin XL] 300 mg PO DAILY 12/28/23 12/28/23 lisinopriL [Zestril] 10 mg PO DAILY 12/28/23 12/28/23 Allergies Allergy/AdvReac Type Severity Reaction Status Date / Time No Known Allergies Allergy Verified 02/13/24 12:25 Review of Systems ROS Other: All systems not noted in ROS Statement are negative. <Ceci Liz - Last Filed: 02/13/24 13:27> ROS Other: All systems not noted in ROS Statement are negative. <Antonio Luna - Last Filed: 02/13/24 16:41> ROS Statement: Those systems with pertinent positive or pertinent negative responses have been documented in the HPI. Past Medical History Past Medical History: Atrial Fibrillation, Cancer, Deep Vein Thrombosis (DVT), GERD/Reflux, Hyperlipidemia, Hypertension, Osteoarthritis (OA), Pulmonary Embo opal (PE) Additional Past Medical History / Comment(s): Hx oral cancer 2003. Hx DVT & PE 12/2015 after back surgery. Hx ulcer. Occasional hypoglycemia. History of Any Multi-Drug Resistant Organisms: None Reported Past Surgical History: Appendectomy, Back Surgery, Bariatric Surgery, Bladder Surgery, Cardiac Ablation, Section, Cholecystectomy, Hysterectomy, Joint Replacement, Orthopedic Surgery, Tonsillectomy Additional Past Surgical History / Comment(s): AAA repaired SEVERAL cardioversion. Back surgery X2. Tubal .Bladder sling, then later removed. colonoscopy, parathyroid gland removed. right hip replacement, left knee arthroscopy,bilateral knee replacements. Gastric Bypass. Excision of left lateral tongue cancer. left thumb joint repair, JEEVAN. Past Anesthesia/Blood Transfusion Reactions: Postoperative Nausea & Vomiting (PONV) Additional Past Anesthesia/Blood Transfusion Reaction / Comment(s): PONV YEARS AGO. Past Psychological History: Anxiety, Depression Smoking Status: Former smoker, Vaper Past Alcohol Use History: Occasional Past Drug Use History: None Reported - Past Family History Father Family Medical History: Cancer Additional Family Medical History / Comment(s): Bladder cancer, CABG. Brother(s) Additional Family Medical History / Comment(s): CABG. Sister(s) Additional Family Medical History / Comment(s): PacemakerMD. <AgustoCeci - Last Filed: 02/13/24 13:27> General Exam <Christine Lizoe - Last Filed: 02/13/24 13:27> <Antonio Luna - Last Filed: 02/13/24 16:41> - General Exam Comments Initial Comments: visual Physical Exam Vital signs reviewed General: Well-appearing, nontoxic, no acute distress. Head: Normocephalic, atraumatic Eyes: PERRLA, EOMI ENT: Airway patent Chest: Nonlabored breathing Skin: No visual rash, normal skin tone Neuro: Alert and oriented 3 Musculoskeletal: No gross abnormalities M (JingiovannyCeic) GENERAL: Patient is well-developed and well-nourished. Patient is nontoxic and well-hy drated and is in mild distress. ENT: Neck is soft and supple. No significant lymphadenopathy is noted. Oropharynx is clear. Moist mucous membranes. Neck has full range of motion without eliciting any pain. EYES: The sclera were anicteric and conjunctiva were pink and moist. Extraocular move ments were intact and pupils were equal round and reactive to light. Eyelids were unremarkable. PULMONARY: Unlabored respirations. Good breath sounds bilaterally. No audible rales rhonchi or wheezing was noted. CARDIOVASCULAR: There is a regular rate and rhythm without any murmurs gallops or rubs. ABDOMEN: Soft and nontender with normal bowel sounds. SKIN: Skin is clear with no lesions or rashes and otherwise unremarkable. NEUROLOGIC: Patient is alert and oriented x3. Cranial nerves II through XII are grossly intact. Motor and sensory are also intact. Normal speech, volume and content. Symmetrical smile. MUSCULOSKELETAL: Normal extremities with adequate strength and full range of motion. No lower extremity swelling or edema. No calf tenderness. LYMPHATICS: No significant lymphadenopathy is noted PSYCHIATRIC: Normal psychiatric evaluation. (Antonio Luna) Course Vital Signs 02/13/24 12:21 Temperature 97.4 F L Pulse Rate 52 L Respiratory 20 Rate Blood Pressure 106/48 O2 Sat by Pulse 100 Oximetry Medical Decision Making <HusseindylanCeci - Last Filed: 02/13/24 13:27> - Lab Data Result diagrams: 02/13/24 12:45 <Antonio Luna - Last Filed: 02/13/24 16:41> - Medical Decision Making I completed the quick note portion of this chart signed Ceci Liz PA-C (Ceci Liz) EKG is interpreted by myself. EKG shows atrial fibrillation at 54 bpm QRS is 114 QT interval is 433 QTc is 418. Patient's EKG shows no ST segment ovation or depression. Was pt. sent in by a medical professional or institution (, [facility], DAIRY MANAGER, urgent care, hospital, or assisted...) When possible be specific @ -No Did you speak to anyone other than the patient for history (EMS, parent, family, police, friend...)? What history was obtained from this source @ -No Did you review nursing and triage notes (agree or disagree)? Why? @ -I reviewed and agree with nursing and triage notes Were old charts reviewed (outside hosp., previous admission, EMS record, old EKG, old radiological studies, urgent care reports/EKG's, assisted records)? Report findings @ -I reviewed today's lab work with prior lab work and it was unchanged in particular was looking at the troponins they were unchanged. Differential Diagnosis (chest pain, altered mental status, abdominal pain women, abdominal pain men, vaginal bleeding, weakness, fever, dyspnea, syncope, headache, dizziness, GI bleed, back pain, seizure, CVA, palpatations, mental health, musculoskeletal)? @ -Not applicable EKG interpreted by me (3pts min.). @ -As above X-rays interpreted by me (1pt min.). @ -Chest x-ray shows no acute abnormality CT interpreted by me (1pt min.). @ -None done U/S interpreted by me (1pt. min.). @ -None done What testing was considered but not performed or refused? (CT, X-rays, U/S, labs)? Why? @ -None What meds were considered but not given or refused? Why? @ -None Did you discuss the management of the patient with other professionals (professionals i.e. , FARHANA, DAIRY MANAGER, lab, RT, psych nurse, hospice social worker, revenue officer, teacher, marketing officer, rn field case manager)? Give summary @ -I spoke with [facility] hospitalist they agreed admit the patient Was smoking cessation discussed for >3mins.? @ -No Was critical care preformed (if so, how long)? @ -No Were there social determinants of health that impacted care today? How? (Homelessness, low income, unemployed, alcoholism, drug addiction, transportation, low edu. Level, literacy, decrease access to med. care, usp, rehab)? @ -No Was there de-escalation of care discussed even if they declined (Discuss DNR or withdrawal of care, Hospice)? DNR status @ -No What co-morbidities impacted this encounter? (DM, HTN, Smoking, COPD, CAD, Cancer, CVA, ARF, Chemo, Hep., AIDS, mental health diagnosis, sleep apnea, morbid obesity)? @ -None Was patient admitted / discharged? Hospital course, mention meds given and route, prescriptions, significant lab abnormalities, going to OR and other perti nent info. @ -Patient was given aspirin Nitropaste in emergency department. Lab came back within normal range. Patient will be admitted to [facility]ist cardiology will be consulted. Undiagnosed new problem with uncertain prognosis? @ -No Drug Therapy requiring intensive monitoring for toxicity (Heparin, Nitro, Insulin, Cardizem)? @ -No Were any procedures done? @ -No Diagnosis/symptom? @ -Exertional dyspnea Acute, or Chronic, or Acute on Chronic? @ -Acute Uncomplicated (without systemic symptoms) or Complicated (systemic symptoms)? @ -Complicated Side effects of treatment? @ -No Exacerbation, Progression, or Severe Exacerbation? @ -No Poses a threat to life or bodily function? How? (Chest pain, [place], [place], pneumonia, PE, COPD, DKA, ARF, appy, cholecystitis, CVA, Diverticulitis, Homicidal, Suicidal, threat to staff... and all critical care pts) @ -This could be a sign of potential heart failure or heart attack and this could lead to endorgan dysfunction (Antonio Luna) - Lab Data Lab Results 02/13/24 02/13/24 Range/Units 12:30 12:45 Sodium 139 (137-145) mmol/L Potassium 4.5 (3.5-5.1) mmol/L Chloride 109 H (98-107) mmol/L Carbon Dioxide 22 (22-30) mmol/L Anion Gap 8 mmol/L BUN 17 (7-17) mg/dL Creatinine 0.77 (0.52-1.04) mg/dL Est GFR (CKD-EPI)AfAm >90 (>60 ml/min/1.73 sqM) Est GFR (CKD-EPI)NonAf 82 (>60 ml/min/1.73 sqM) Glucose 103 H (74-99) mg/dL Calcium 9.1 (8.4-10.2) mg/dL Total Bilirubin 0.3 (0.2-1.3) mg/dL AST 24 (14-36) U/L ALT 12 (4-34) U/L Alkaline Phosphatase 101 (38-126) U/L Troponin I <0.012 (0.000-0.034) ng/mL Total Protein 6.4 (6.3-8.2) g/dL Albumin 3.7 (3.5-5.0) g/dL Disposition <Ceci Liz - Last Filed: 02/13/24 13:27> Time of Disposition: 16:41 <Antonio Luna - Last Filed: 02/13/24 16:41> Clinical Impression: Exertional dyspnea Disposition: ADMITTED IP TO THIS HOSP Referrals: Cordelia Jackson DO [Primary Care Provider] - 1-2 days
[2024-02-13 14:14] LABS: ALT 12 U/L (4-34); AST 24 U/L (14-36); African American GFR (CKD) >90 (>60 ml/min/1.73 sqM); Albumin 3.7 g/dL (3.5-5.0); Alkaline Phosphatase 101 U/L (38-126); Anion Gap 8 mmol/L; Blood Urea Nitrogen 17 mg/dL (7-17); Calcium 9.1 mg/dL (8.4-10.2); Carbon Dioxide 22 mmol/L (22-30); Chloride 109 mmol/L (98-107); Glucose 103 mg/dL (74-99); Non-African American GFR(CKD) 82 (>60 ml/min/1.73 sqM); Potassium 4.5 mmol/L (3.5-5.1); Sodium 139 mmol/L (137-145); Total Bilirubin 0.3 mg/dL (0.2-1.3); Total Protein 6.4 g/dL (6.3-8.2)
[2024-02-13] MEDS: NITROGLYCERIN OINT 1 INCH/GM PACKET TOPICAL STA (16:55)
[2024-02-13] MEDS: ASPIRIN 81 MG PO STA (16:55)
[2024-02-13 17:04] LABS: Basophils % (A) 1 %; Eosinophils # (A) 0.3 k/uL (0-0.7); Eosinophils % (A) 6 %; HCT 33.4 % (34.0-46.0); HGB 10.3 gm/dL (11.4-16.0); Hypochromasia Slight; Lymphocytes % (A) 20 %; MCV 90.5 fL (80.0-100.0); Mean Platelet Volume 7.4; Monocytes # (A) 0.4 k/uL (0-1.0); Monocytes % (A) 7 %; Neutrophils # (A) 3.2 k/uL (1.3-7.7); Neutrophils % (A) 65 %; Platelet Count 262 k/uL (150-450); RBC 3.69 m/uL (3.80-5.40); RDW 15.3 % (11.5-15.5)
[2024-02-13 17:15] LABS: ALT 13 U/L (4-34); AST 24 U/L (14-36); African American GFR (CKD) >90 (>60 ml/min/1.73 sqM); Albumin 3.6 g/dL (3.5-5.0); Alkaline Phosphatase 96 U/L (38-126); Anion Gap 6 mmol/L; Blood Urea Nitrogen 15 mg/dL (7-17); Calcium 8.9 mg/dL (8.4-10.2); Carbon Dioxide 23 mmol/L (22-30); Chloride 111 mmol/L (98-107); Glucose 98 mg/dL (74-99); Magnesium 2.1 mg/dL (1.6-2.3); Non-African American GFR(CKD) 85 (>60 ml/min/1.73 sqM); Potassium 3.9 mmol/L (3.5-5.1); Sodium 140 mmol/L (137-145); Total Bilirubin 0.3 mg/dL (0.2-1.3); Total Protein 6.3 g/dL (6.3-8.2)
[2024-02-13 17:17] LABS: INR 1.2 (<1.2); Partial Thromboplastin Time 24.5 sec (22.0-30.0); Prothrombin Time 12.7 sec (10.0-12.5)
[2024-02-13 17:23] LABS: NT-Pro-B-Type Natriuretic Pept 340 pg/mL
[2024-02-14 08:10] VITALS: RESP 16; TEMP 98
[2024-02-14] MEDS ORDERED: WARFARIN 5 MG TAB PO SCH ×2 (08:30)
[2024-02-14] MEDS ORDERED: ATORVASTATIN 10 MG TAB PO SCH (09:00)
[2024-02-14] MEDS: ISOSORBIDE MONONITRATE ER 30 MG TAB.ER.24H PO SCH (10:51)
[2024-02-14] MEDS: ATORVASTATIN 40 MG TAB PO SCH (10:51)
[2024-02-14] MEDS: METOPROLOL SUCCINATE (ER) 25 MG TAB.ER.24H PO SCH (10:51)
[2024-02-14] MEDS: lisinopriL 10 MG TAB PO SCH (10:51)
[2024-02-14] MEDS: ENOXAPARIN 120 MG/0.8 ML SYRINGE SQ SCH (10:51)
--- NOTE | 2024-02-14 11:17 | P.CRDCN ---
History of Present Illness History of present illness: HISTORY OF PRESENT ILLNESS: This is a 63-year-old female with a past medical history significant for atrial fibrillation, aortic aneurysm, morbid obesity, hypertension, and hyperlipidemia. Patient follows in the office with Dr. Romero. We have been asked to see the patient in consultation for shortness of breath. Patient examined at the bedside. Patient states that she was recently diagnosed with carcinoma of the tongue. She is supposed to undergo surgery on Monday. She states that she became overwhelmed thinking about her health conditions and began to have chest discomfort. The patient currently denies any chest pain or pressure at the time of examination. She denies any shortness of breath. Patient is anticoagulated on an outpatient basis with Coumadin. She states she was supposed to stop taking her Coumadin today due to her upcoming surgery on Monday. It is noted that the patient underwent A-fib ablation with Dr. Marsh on 11/07/2023 DIAGNOSTICS: - EKG reveals sinus mechanism with PVCs. - Chest xray negative for acute process - Laboratory data: WBC 5.0. Hemoglobin 10.3. Platelet count 262. Sodium 140. Potassium 3.9. BUN 15. Creatinine 0.75. Magnesium 2.1. Troponin negative x 2. - Current home cardiac medications include aspirin 325 mg as directed, Imdur 30 mg daily, rosuvastatin 5 mg daily, lisinopril 10 mg daily, metoprolol succinate 25 mg daily, and Coumadin. - Most recent echocardiogram obtained in October 2023 ejection fraction 50 to 55%, mild MR, mild TR REVIEW OF SYSTEMS: At the time of my exam: CONSTITUTIONAL: Denies fever or chills. HEENT: Denies blurred vision, vision changes, or eye pain. Denies hemoptysis CARDIOVASCULAR: Denies chest pain. Denies orthopnea. Denies PND. Denies palpitations RESPIRATORY: Denies shortness of breath. GASTROINTESTINAL: Denies abdominal pain. Denies nausea or vomiting. HEMATOLOGIC: Denies bleeding disorders. GENITOURINARY: Denies any blood in urine. SKIN: Denies pruitis. Denies rash. PHYSICAL EXAM: VITAL SIGNS: Reviewed. GENERAL: Well-developed in no acute distress. HEENT: Head is normocephalic. Pupils are equal, round. Sclerae anicteric. Mucous membranes of the mouth are moist. Neck supple. No JVD or thyromegaly LUNGS: Respirations even and unlabored. Lungs essentially clear to auscultation bilaterally. HEART: Regular rate and rhythm. S1 and S2 heard. ABDOMEN: Soft. Nondistended. Nontender. EXTREMITIES: Normal range of motion. No clubbing or cyanosis. Peripheral pulses intact. No lower extremity edema NEUROLOGIC: Awake and alert. Oriented x 3. ASSESSMENT: Chest pain, troponin negative x 2 Recent diagnosis of carcinoma of the tongue, scheduled for surgical intervention on Monday History of atrial fibrillation with recent ablation in October 2023 Hypertension Hyperlipidemia Morbid obesity History of aortic aneurysm status post stent graft PLAN: An acute coronary event has been ruled out Obtain limited 2D echo to assess LV function and assess for pericardial effusion Resume home cardiac medications Patient is scheduled for surgical intervention on Monday due to recent diagnosis of carcinoma of the tongue. She was instructed to stop her Coumadin today. However due to patient's recent A-fib ablation in October 2023, recommend patient be bridged with Lovenox. Recommend to continue Lovenox until Monday night. No Lovenox on Monday or Monday. Further recommendations pending patient course Nurse practitioner note has been reviewed by physician. Signing provider agrees with the documented findings, assessment, and plan of care documented by DIVIDEND CLERK as a scribe. Past Medical History Past Medical History: Atrial Fibrillation, Cancer, Deep Vein Thrombosis (DVT), GERD/Reflux, Hyperlipidemia, Hypertension, Osteoarthritis (OA), Pulmonary Embolus (PE) Additional Past Medical History / Comment(s): Hx oral cancer 2003. Hx DVT & PE 12/2015 after back surgery. Hx ulcer. Occasional hypoglycemia. History of Any Multi-Drug Resistant Organisms: None Reported Past Surgical History: Appendectomy, Back Surgery, Bariatric Surgery, Bladder Surgery, Cardiac Ablation, Section, Cholecystectomy, Hysterectomy, Joint Replacement, Orthopedic Surgery, Tonsillectomy Additional Past Surgical History / Comment(s): AAA repaired SEVERAL cardioversion. Back surgery X2. Tubal .Bladder sling, then later removed. colonoscopy, parathyroid gland removed. right hip replacement, left knee arthroscopy,bilateral knee replacements. Gastric Bypass. Excision of left lateral tongue cancer. left thumb joint repair, JEEVAN. Past Anesthesia/Blood Transfusion Reactions: Postoperative Nausea & Vomiting (PONV) Additional Past Anesthesia/Blood Transfusion Reaction / Comment(s): PONV YEARS AGO. Past Psychological History: Anxiety, Depression Smoking Status: Former smoker, Vaper Past Alcohol Use History: Occasional Additional Past Alcohol Use History / Comment(s): Started smoking at age 15, quit from [id number], now vaping, 1 cartridge per week. Past Drug Use History: None Reported - Past Family History Father Family Medical History: Cancer Additional Family Medical History / Comment(s): Bladder cancer, CABG. Brother(s) Additional Family Medical History / Comment(s): CABG. Sister(s) Additional Family Medical History / Comment(s): PacemakerMD. Medications and Allergies Home Medications Medication Instructions Recorded Confirmed Type Lansoprazole [Prevacid] 15 mg PO DAILY 07/25/17 02/13/24 History Cyanocobalamin [Vitamin B-12 1,000 mcg SQ Q30D 12/28/18 02/13/24 History Injection] DULoxetine HCL [Cymbalta] 60 mg PO DAILY 12/28/18 02/13/24 History Gabapentin 600 mg PO DAILY 07/15/20 02/13/24 History Aspirin 325 mg PO DIRECTED 06/08/23 02/13/24 History Rosuvastatin Calcium 5 mg PO DAILY 11/01/23 02/13/24 History Warfarin [Coumadin] 5 mg PO DIRECTED 12/28/23 02/13/24 History Warfarin [Coumadin] 7.5 mg PO DIRECTED 12/28/23 02/13/24 History buPROPion XL [Wellbutrin XL] 300 mg PO DAILY 12/28/23 02/13/24 History lisinopriL [Zestril] 10 mg PO DAILY 12/28/23 02/13/24 History Isosorbide Mononitrate ER [Imdur] 30 mg PO DIRECTED 02/13/24 02/13/24 History Metoprolol Succinate [Metoprolol 25 mg PO DAILY 02/13/24 02/13/24 History Succinate ER] Sertraline [Zoloft] 50 mg PO DAILY 02/13/24 02/13/24 History Allergies Allergy/AdvReac Type Severity Reaction Status Date / Time No Known Allergies Allergy Verified 02/13/24 16:58 Physical Exam Vitals: Vital Signs Temp Pulse Pulse Resp BP BP Pulse Ox 02/14/24 09:30 16 02/14/24 07:36 98 F 61 16 112/61 98 02/13/24 23:35 97.8 F 69 15 129/53 98 02/13/24 21:41 98.3 F 02/13/24 21:25 56 L 18 125/78 99 02/13/24 16:29 18 02/13/24 15:53 64 16 118/57 97 02/13/24 12:21 97.4 F L 52 L 20 106/48 100 Intake and Output 02/13/24 02/14/24 02/14/24 22:59 06:59 14:59 Other: # Voids 1 2 Weight 122.47 kg Results 02/13/24 16:56 02/13/24 16:56 Cardiac Enzymes 02/13/24 02/13/24 02/13/24 Range/Units 12:30 12:45 16:56 AST 24 24 (14-36) U/L Troponin I <0.012 (0.000-0.034) ng/mL 02/13/24 Range/Units 16:56 AST (14-36) U/L Troponin I <0.012 (0.000-0.034) ng/mL Coagulation 02/13/24 Range/Units 16:56 PT 12.7 H (10.0-12.5) sec APTT 24.5 (22.0-30.0) sec CBC 02/13/24 Range/Units 16:56 WBC 5.0 (3.8-10.6) k/uL RBC 3.69 L (3.80-5.40) m/uL Hgb 10.3 L (11.4-16.0) gm/dL Hct 33.4 L (34.0-46.0) % Plt Count 262 (150-450) k/uL Comprehensive Metabolic Panel 02/13/24 02/13/24 Range/Units 12:45 16:56 Sodium 139 140 (137-145) mmol/L Potassium 4.5 3.9 (3.5-5.1) mmol/L Chloride 109 H 111 H (98-107) mmol/L Carbon Dioxide 22 23 (22-30) mmol/L BUN 17 15 (7-17) mg/dL Creatinine 0.77 0.75 (0.52-1.04) mg/dL Glucose 103 H 98 (74-99) mg/dL Calcium 9.1 8.9 (8.4-10.2) mg/dL AST 24 24 (14-36) U/L ALT 12 13 (4-34) U/L Alkaline Phosphatase 101 96 (38-126) U/L Total Protein 6.4 6.3 (6.3-8.2) g/dL Albumin 3.7 3.6 (3.5-5.0) g/dL Current Medications Generic Name Dose Route Start Last Admin Trade Name Freq PRN Reason Stop Dose Admin Atorvastatin Calcium 40 mg 02/14/24 09:00 02/14/24 10:51 Atorvastatin 40 Mg Tab PO 40 mg DAILY FARIDEH Administration Enoxaparin Sodium 120 mg 02/14/24 09:00 02/14/24 10:51 Enoxaparin 120 Mg/0.8 Ml Syringe SQ 120 mg Q12HR FARIDEH Administration Isosorbide Mononitrate 30 mg 02/14/24 09:00 02/14/24 10:51 Isosorbide Mononitrate Er 30 Mg Tab.Er.24h PO 30 mg DAILY FARIDEH Administration Lisinopril 10 mg 02/14/24 09:00 02/14/24 10:51 Lisinopril 10 Mg Tab PO 10 mg DAILY FARIDEH Administration Metoprolol Succinate 25 mg 02/14/24 09:00 02/14/24 10:51 Metoprolol Succinate (Er) 25 Mg Tab.Er.24h PO 25 mg DAILY FARIDEH Administration Intake and Output 02/13/24 02/14/24 02/14/24 22:59 06:59 14:59 Other: # Voids 1 2 Weight 122.47 kg 02/13/24 16:56 02/13/24 16:56
--- NOTE | 2024-02-14 12:10 | P.HPIM ---
History of Present Illness 63-year-old female came in with some nonspecific symptoms of a possible lightheadedness and feeling fullness in the head like sinusitis. As per the ER physician and cardiology documentation patient complained of shortness of breath although she denied any shortness of breath to me. Patient felt like she may have be having a A-fib with rapid and clearly because of which patient came to ER. Patient here is rate controlled patient underwent ablation for atrial fibrillation in October of this year. Patient denies any chest pain at this time patient is saturating at 98% on room air patient does not have any cerebellar signs patient does not have any focal weakness. Orthostatic vitals are not available although, patient has low normal systolic blood pressures. Patient takes lisinopril 10 mg. Patient's Imdur and metoprolol sustained- release will be held and patient is being resumed on these medications. Patient does not have any history of congestive heart failure patient has normal ejection fraction in the past. No other significant lab abnormalities were appreciated. Chest x-ray did not show any significant abnormality. REVIEW OF SYSTEMS: CONSTITUTIONAL: No fever, no malaise, no fatigue. HEENT: No recent visual problems or hearing problems. Denied any sore throat. CARDIOVASCULAR: No chest pain, orthopnea, PND, no palpitations, no syncope. PULMONARY: No shortness of breath, no cough, no hemoptysis. GASTROINTESTINAL: No diarrhea, no nausea, no vomiting, no abdominal pain. NEUROLOGICAL: No headaches, no weakness, no numbness. HEMATOLOGICAL: Denies any bleeding or petechiae. GENITOURINARY: Denies any burning micturition, frequency, or urgency. MUSCULOSKELETAL/RHEUMATOLOGICAL: Denies any joint pain, swelling, or any muscle pain. ENDOCRINE: Denies any polyuria or polydipsia. The rest of the 14-point review of systems is negative. PHYSICAL EXAMINATION: GENERAL: The patient is alert and oriented x3, not in any acute distress. Well developed, well nourished. HEENT: Pupils are round and equally reacting to light. EOMI. No scleral icterus. No conjunctival pallor. Normocephalic, atraumatic. No pharyngeal erythema. No thyromegaly. CARDIOVASCULAR: S1 and S2 present. No murmurs, rubs, or gallops. PULMONARY: Chest is clear to auscultation, no wheezing or crackles. ABDOMEN: Soft, nontender, nondistended, normoactive bowel sounds. No palpable organomegaly. MUSCULOSKELETAL: No joint swelling or deformity. EXTREMITIES: No cyanosis, clubbing, or pedal edema. NEUROLOGICAL: Gross neurological examination did not reveal any focal deficits. SKIN: No rashes. Assessment and plan -Mild lightheadedness may be secondary to low blood pressures at home we will hold off on the lisinopril for now. Patient is being restarted back on Imdur and metoprolol at this time. Patient was asked to check the blood pressure at home if needed patient can be started on the lower dose of KARSON inhibitor. And cardiology is recommending echocardiogram to rule out any pericardial effusion if that is negative patient will be discharged today. -Atrial fibrillation with recent ablation patient is sinus rhythm patient is rate controlled at this time -Hypertension -Hyperlipidemia -Obesity -Recent diagnosis of tongue cancer for which patient will undergo surgery next Monday. Patient is on Coumadin which is being held and patient has been bridged with Lovenox as recommended by cardiology. Patient will hold off on her Coumadin until surgery Patient will be discharged today if echocardiogram does not show any significant abnormality or pericardial effusion Past Medical History Past Medical History: Atrial Fibrillation, Cancer, Deep Vein Thrombosis (DVT), GERD/Reflux, Hyperlipidemia, Hypertension, Osteoarthritis (OA), Pulmonary Embolus (PE) Additional Past Medical History / Comment(s): Hx oral cancer 2003. Hx DVT & PE 12/2015 after back surgery. Hx ulcer. Occasional hypoglycemia. History of Any Multi-Drug Resistant Organisms: None Reported Past Surgical History: Appendectomy, Back Surgery, Bariatric Surgery, Bladder Surgery, Cardiac Ablation, Section, Cholecystectomy, Hysterectomy, Joint Replacement, Orthopedic Surgery, Tonsillectomy Additional Past Surgical History / Comment(s): AAA repaired SEVERAL cardioversion. Back surgery X2. Tubal .Bladder sling, then later removed. colonoscopy, parathyroid gland removed. right hip replacement, left knee arthroscopy,bilateral knee replacements. Gastric Bypass. Excision of left lateral tongue cancer. left thumb joint repair, JEEVAN. Past Anesthesia/Blood Transfusion Reactions: Postoperative Nausea & Vomiting (PONV) Additional Past Anesthesia/Blood Transfusion Reaction / Comment(s): PONV YEARS AGO. Past Psychological History: Anxiety, Depression Smoking Status: Former smoker, Vaper Past Alcohol Use History: Occasional Additional Past Alcohol Use History / Comment(s): Started smoking at age 15, quit from [id number], now vaping, 1 cartridge per week. Past Drug Use History: None Reported - Past Family History Father Family Medical History: Cancer Additional Family Medical History / Comment(s): Bladder cancer, CABG. Brother(s) Additional Family Medical History / Comment(s): CABG. Sister(s) Additional Family Medical History / Comment(s): PacemakerMD. Medications and Allergies Home Medications Medication Instructions Recorded Confirmed Type Lansoprazole [Prevacid] 15 mg PO DAILY 07/25/17 02/13/24 History Cyanocobalamin [Vitamin B-12 1,000 mcg SQ Q30D 12/28/18 02/13/24 History Injection] DULoxetine HCL [Cymbalta] 60 mg PO DAILY 12/28/18 02/13/24 History Gabapentin 600 mg PO DAILY 07/15/20 02/13/24 History Aspirin 325 mg PO DIRECTED 06/08/23 02/13/24 History Rosuvastatin Calcium 5 mg PO DAILY 11/01/23 02/13/24 History buPROPion XL [Wellbutrin XL] 300 mg PO DAILY 12/28/23 02/13/24 History Isosorbide Mononitrate ER [Imdur] 30 mg PO DIRECTED 02/13/24 02/13/24 History Metoprolol Succinate [Metoprolol 25 mg PO DAILY 02/13/24 02/13/24 History Succinate ER] Sertraline [Zoloft] 50 mg PO DAILY 02/13/24 02/13/24 History Enoxaparin [Lovenox] 120 mg SQ Q12HR #7 each 02/14/24 Rx Warfarin [Coumadin] 5 mg PO DIRECTED #0 02/14/24 02/13/24 Rx Warfarin [Coumadin] 7.5 mg PO DIRECTED #0 02/14/24 02/13/24 Rx Allergies Allergy/AdvReac Type Severity Reaction Status Date / Time No Known Allergies Allergy Verified 02/13/24 16:58 Physical Exam Vitals: Vital Signs Temp Pulse Pulse Resp BP BP Pulse Ox 02/14/24 09:30 16 02/14/24 07:36 98 F 61 16 112/61 98 02/13/24 23:35 97.8 F 69 15 129/53 98 02/13/24 21:41 98.3 F 02/13/24 21:25 56 L 18 125/78 99 02/13/24 16:29 18 02/13/24 15:53 64 16 118/57 97 02/13/24 12:21 97.4 F L 52 L 20 106/48 100 Intake and Output 02/13/24 02/14/24 02/14/24 22:59 06:59 14:59 Other: # Voids 1 2 Weight 122.47 kg Results CBC & Chem 7: 02/13/24 16:56 02/13/24 16:56 Labs: Abnormal Lab Results - Last 24 Hours (Table) 02/13/24 02/13/24 02/13/24 Range/Units 12:45 16:56 16:56 RBC 3.69 L (3.80-5.40) m/uL Hgb 10.3 L (11.4-16.0) gm/dL Hct 33.4 L (34.0-46.0) % PT 12.7 H (10.0-12.5) sec INR 1.2 H (<1.2) Chloride 109 H (98-107) mmol/L Glucose 103 H (74-99) mg/dL 02/13/24 Range/Units 16:56 RBC (3.80-5.40) m/uL Hgb (11.4-16.0) gm/dL Hct (34.0-46.0) % PT (10.0-12.5) sec INR (<1.2) Chloride 111 H (98-107) mmol/L Glucose (74-99) mg/dL
--- NOTE | 2024-02-14 12:10 | P.DS ---
Providers Date of admission: 02/13/24 16:44 Attending physician: Ivan Ndiaye Consults: 02/13/24 16:42 Consult Physician Urgent Consulting Provider: [facility] Consult Reason/Comments: Exertional dyspnea Do you want consulting provider notified?: Yes Primary care physician: Cordelia Jackson [facility] Course: 63-year-old female came in with some nonspecific symptoms of a possible li ghtheadedness and feeling fullness in the head like sinusitis. As per the ER physician and cardiology documentation patient complained of shortness of breath although she denied any shortness of breath to me. Patient felt like she may have be having a A-fib with rapid and clearly because of which patient came to ER. Patient here is rate controlled patient underwent ablation for atrial fibrillation in October of this year. Patient denies any chest pain at this time patient is saturating at 98% on room air patient does not have any cerebellar signs patient does not have any focal weakness. Orthostatic vitals are not available although, patient has low normal systolic blood pressures. Patient takes lisinopril 10 mg. Patient's Imdur and metoprolol sustained- release will be held and patient is being resumed on these medications. Patient does not have any history of congestive heart failure patient has normal ejection fraction in the past. No other significant lab abnormalities were appreciated. Chest x-ray did not show any significant abnormality. PHYSICAL EXAMINATION: GENERAL: The patient is alert and oriented x3, not in any acute distress. Well developed, well nourished. HEENT: Pupils are round and equally reacting to light. EOMI. No scleral icterus. No conjunctival pallor. Normocephalic, atraumatic. No pharyngeal erythema. No thyromegaly. CARDIOVASCULAR: S1 and S2 present. No murmurs, rubs, or gallops. PULMONARY: Chest is clear to auscultation, no wheezing or crackles. ABDOMEN: Soft, nontender, nondistended, normoactive bowel sounds. No palpable organomegaly. MUSCULOSKELETAL: No joint swelling or deformity. EXTREMITIES: No cyanosis, clubbing, or pedal edema. NEUROLOGICAL: Gross neurological examination did not reveal any focal deficits. SKIN: No rashes. Assessment and plan -Mild lightheadedness may be secondary to low blood pressures at home we will hold off on the lisinopril for now. Patient is being restarted back on Imdur and metoprolol at this time. Patient was asked to check the blood pressure at home if needed patient can be started on the lower dose of KARSON inhibitor. And cardiology is recommending echocardiogram to rule out any pericardial effusion if that is negative patient will be discharged today. -Atrial fibrillation with recent ablation patient is sinus rhythm patient is rate controlled at this time -Hypertension -Hyperlipidemia -Obesity -Recent diagnosis of tongue cancer for which patient will undergo surgery next Monday. Patient is on Coumadin which is being held and patient has been bridged with Lovenox as recommended by cardiology. Patient will hold off on her Coumadin until surgery Patient will be discharged today if echocardiogram does not show any significant abnormality or pericardial effusion Plan - Discharge Summary New Discharge Prescriptions: New Enoxaparin [Lovenox] 120 mg SQ Q12HR #7 each Continue Lansoprazole [Prevacid] 15 mg PO DAILY DULoxetine HCL [Cymbalta] 60 mg PO DAILY Cyanocobalamin [Vitamin B-12 Injection] 1,000 mcg SQ Q30D Gabapentin 600 mg PO DAILY Warfarin [Coumadin] 7.5 mg PO DIRECTED #0 Warfarin [Coumadin] 5 mg PO DIRECTED #0 Aspirin 325 mg PO DIRECTED Rosuvastatin Calcium 5 mg PO DAILY buPROPion XL [Wellbutrin XL] 300 mg PO DAILY Isosorbide Mononitrate ER [Imdur] 30 mg PO DIRECTED Sertraline [Zoloft] 50 mg PO DAILY Metoprolol Succinate [Metoprolol Succinate ER] 25 mg PO DAILY Discontinued lisinopriL [Zestril] 10 mg PO DAILY Discharge Medication List Lansoprazole [Prevacid] 15 mg PO DAILY 07/25/17 [History] Cyanocobalamin [Vitamin B-12 Injection] 1,000 mcg SQ Q30D 12/28/18 [History] DULoxetine HCL [Cymbalta] 60 mg PO DAILY 12/28/18 [History] Gabapentin 600 mg PO DAILY 07/15/20 [History] Aspirin 325 mg PO DIRECTED 06/08/23 [History] Rosuvastatin Calcium 5 mg PO DAILY 11/01/23 [History] buPROPion XL [Wellbutrin XL] 300 mg PO DAILY 12/28/23 [History] Isosorbide Mononitrate ER [Imdur] 30 mg PO DIRECTED 02/13/24 [History] Metoprolol Succinate [Metoprolol Succinate ER] 25 mg PO DAILY 02/13/24 [History] Sertraline [Zoloft] 50 mg PO DAILY 02/13/24 [History] Enoxaparin [Lovenox] 120 mg SQ Q12HR #7 each 02/14/24 [Rx] Warfarin [Coumadin] 5 mg PO DIRECTED #0 02/14/24 [Rx] Warfarin [Coumadin] 7.5 mg PO DIRECTED #0 02/14/24 [Rx] Follow up Appointment(s)/Referral(s): Cordelia Jackson DO [Primary Care Provider] - 3 Days Tiago Romero MD [STAFF PHYSICIAN] - 1 Week Activity/Diet/Wound Care/Special Instructions: HOLD COUMADIN CONTINUE LOVENOX WITH LAST DOSE ON MONDAY NIGHT NO LOVENOX ON MONDAY OR MONDAY Discharge Disposition: HOME SELF-CARE
[2024-02-14] MEDS: POTASSIUM CHLORIDE ER 20 MEQ TAB.ER PO STA (14:36)
[2024-02-14 14:43] VITALS: BP 106/61; PULSE 72
--- NOTE | 2024-02-15 17:02 | CA ---
Transthoracic Echo Report Name: Ellie Garibay Age: 63 Gender: F : 1960 Exam Date: 02/14/2024 14:23 Exam Location: [place] [facility] Ht (in): 68 Wt (lb): 270 Ordering Physician: Asya Esqueda Attending/Referring Phys: [id number], Yin Bean Sorter Candace Pérez RDCS Procedure CPT: Indications: lv function, assess for pericardial effusion Cardiac Hx: Technical Quality: Fair Contrast 1: Total Dose (mL): Contrast 2: Total Dose (mL): MEASUREMENTS (Male / Female) Normal Values FINDINGS Left Ventricle Limited study, left ventricular ejection fraction is estimated at 50 %. Right Ventricle Right Atrium Left Atrium Mitral Valve Aortic Valve Tricuspid Valve Pulmonic Valve Pericardium No pericardial effusion. Aorta CONCLUSIONS LV function of the lower limits of normal Previewed by: Dr. Cullen Marsh MD (Electronically Signed) Final Date: 15 February 2024 17:01
== END 2024-02-14 20:19 | disposition left against medical advice (07) ==
LOC: EC 12:05 → 6NMEDSUR 16:44
PROVIDERS: ADMIT Hospitalist; ATTEND Hospitalist
DX: R06.00 Dyspnea, unspecified (principal); R42 Dizziness and giddiness; I48.91 Unspecified atrial fibrillation; Z79.01 Long term (current) use of anticoagulants; Z86.711 Personal history of pulmonary embolism; Z85.43 Personal history of malignant neoplasm of ovary; Z79.899 Other long term (current) drug therapy; Z80.52 Family history of malignant neoplasm of bladder; Z82.49 Family history of ischemic heart disease and other diseases of the circulatory system; Z85.810 Personal history of malignant neoplasm of tongue; Z86.718 Personal history of other venous thrombosis and embolism; Z86.79 Personal history of other diseases of the circulatory system; Z79.82 Long term (current) use of aspirin; Z90.710 Acquired absence of both cervix and uterus; Z96.641 Presence of right artificial hip joint; Z96.653 Presence of artificial knee joint, bilateral; Z98.84 Bariatric surgery status; I49.3 Ventricular premature depolarization; E66.01 Morbid (severe) obesity due to excess calories; I10 Essential (primary) hypertension; F32.A Depression, unspecified; F41.9 Anxiety disorder, unspecified; E66.9 Obesity, unspecified
CPT/HCPCS: 96372; 99285; 36415; 94760; 93005; 93308; 83880; 80053; 83605; 83735; 84484; 85025; 85610; 85730; 71046; G0378 ×2; J1650

== ENCOUNTER 2024-04-09 05:37 | Day surgery (SDC) | payer MEDICARE ==
[2024-04-09] MEDS ORDERED: HEPARIN SODIUM,PORCINE (1 ML) 2,500 UNIT in SODIUM CHLORIDE 0.9% 250 ML IRRIGATION PRN (05:56)
[2024-04-09] MEDS ORDERED: HEPARIN SODIUM,PORCINE 10,000 UNIT in SODIUM CHLORIDE 0.9% 1,000 ML IRRIGATION PRN (05:56)
[2024-04-09] MEDS ORDERED: NITROGLYCERIN SL TABS 0.4 MG TAB SUBLINGUAL PRN (05:56)
[2024-04-09] MEDS ORDERED: ALPRAZolam 0.5 MG TAB PO PRN (05:56)
[2024-04-09] MEDS ORDERED: ALPRAZolam 0.25 MG TAB PO PRN (05:56)
[2024-04-09] MEDS: SODIUM CHLORIDE 0.9% 1,000 ML IV ONE ×2 (06:13→13:30)
[2024-04-09] MEDS: ATORVASTATIN 80 MG TAB PO ONE (06:21)
[2024-04-09] MEDS: ASPIRIN 325 MG TAB PO ONE (06:21)
[2024-04-09 06:36] LABS: Anisocytosis Slight; Basophils # (A) 0.1 k/uL (0-0.2); Basophils % (A) 1 %; Eosinophils # (A) 0.3 k/uL (0-0.7); Eosinophils % (A) 5 %; HCT 36.2 % (34.0-46.0); HGB 11.3 gm/dL (11.4-16.0); Lymphocytes # (A) 1.5 k/uL (1.0-4.8); Lymphocytes % (A) 27 %; MCH 27.3 pg (25.0-35.0); MCHC 31.1 g/dL (31.0-37.0); MCV 87.8 fL (80.0-100.0); Mean Platelet Volume 7.3; Monocytes # (A) 0.4 k/uL (0-1.0); Monocytes % (A) 8 %; Neutrophils # (A) 3.2 k/uL (1.3-7.7); Neutrophils % (A) 58 %; Platelet Count 342 k/uL (150-450); RBC 4.12 m/uL (3.80-5.40); RDW 16.9 % (11.5-15.5); WBC 5.6 k/uL (3.8-10.6)
[2024-04-09 06:46] LABS: INR 1.2 (<1.2); Prothrombin Time 12.5 sec (10.0-12.5)
[2024-04-09] MEDS ORDERED: fentaNYL (PF) 50 MCG/ML 2 ML AMP ONE (07:26)
[2024-04-09] MEDS ORDERED: HEPARIN SODIUM 1,000 UN/ML (10ML VL) ONE ×2 (07:26→08:35)
[2024-04-09] MEDS ORDERED: LIDOCAINE 1% INJ 10MG/ML (20 ML MDV) ONE (07:27)
[2024-04-09] MEDS ORDERED: VERAPAMIL 2.5 MG/ML 2 ML AMP ONE (07:27)
[2024-04-09] MEDS: MIDAZOLAM 2 MG/2 ML VIAL IVP ONE ×2 (07:37→08:38)
[2024-04-09] MEDS: fentaNYL (PF) 50 MCG/1 ML VIAL IVP ONE (07:37)
[2024-04-09] MEDS: LIDOCAINE 1% INJ 10MG/ML (20 ML MDV) SQ ONE (07:40)
[2024-04-09] MEDS: VERAPAMIL SYRINGE (5 MG/10 ML) INTRAARTER ONE (07:41)
[2024-04-09] MEDS: HEPARIN SODIUM 1,000 UN/ML (10ML VL) IVP ONE ×2 (07:45→08:58)
[2024-04-09] MEDS ORDERED: CLOPIDOGREL 75 MG TAB ONE (07:58)
[2024-04-09] MEDS: CLOPIDOGREL 75 MG TAB PO ONE (07:59)
--- NOTE | 2024-04-09 08:37 | CC ---
CARDIAC CATHETERIZATION REPORT INDICATIONS: Abnormal stress test showing ischemia involving inferior wall. PROCEDURE NOTE: After obtaining informed consent, left heart catheterization and coronary angiogram were performed via the right radial artery using standard [place] catheters. The patient tolerated the procedure well without any obvious immediate complications. The patient received verapamil and heparin per protocol and a TR band will be used at the end of the procedure. The patient received moderate conscious sedation. Total sedation time was 15 minutes. FINDINGS: 1. Hemodynamics: Left ventricular end-diastolic pressure is 8 to 10 mm. There is no significant gradient across the aortic valve. 2. Left Ventriculogram: Left ventriculogram is not performed. 3. Angiographic Data: a.Right Coronary Artery: Right coronary artery is a large dominant vessel that shows 2 areas of focal segmental stenosis at their worst, they seemed to be 80% to 90% stenosis. Left main coronary artery appears mildly calcified, divides into left anterior descending coronary artery and circumflex coronary artery. Circumflex coronary artery and its branches are free of significant stenosis. LAD gives off a large caliber diagonal branch that shows a 40% to 50% ostial stenosis. CONCLUSIONS: Severe focal stenosis involving large dominant right coronary artery. PLAN: I reviewed angiographic data with Dr. Aguilar, the on-call drapery and upholstery measurer who will proceed with angioplasty with stent placement of the right coronary artery which is why the patient had stress-induced ischemia and a nuclear scan that involved more than 15% of the myocardium. MMODL / IJN: [id number] /
[2024-04-09] MEDS: fentaNYL (PF) 50 MCG/ML 2 ML AMP IVP ONE (08:38)
[2024-04-09] MEDS: ATROPINE SULFATE 0.1 MG/ML 10ML SYRINGE IVP ONE (08:40)
[2024-04-09] MEDS: PHENYLEPHRINE-0.9% NACL SYG 1,000 MCG/10 ML SYRINGE IVP ONE ×3 (08:41→09:00)
[2024-04-09] MEDS ORDERED: ONDANSETRON 4 MG/2 ML VIAL ONE (08:46)
[2024-04-09] MEDS: ONDANSETRON 4 MG/2 ML VIAL IVP ONE (08:48)
[2024-04-09] MEDS: NOREPINEPHRINE 4 MG in SODIUM CHLORIDE 0.9% 250 ML IV ONE ×2 (09:09→09:13)
[2024-04-09] MEDS: IOPAMIDOL-370 100ML BTL INJ ONE ×2 (09:30)
[2024-04-09] MEDS ORDERED: ATROPINE SULFATE 0.1 MG/ML 10ML SYRINGE IV PRN (10:13)
[2024-04-09] MEDS ORDERED: RX INFO: IV CONTRAST WAS GIVEN 1 EACH MISC MISCELLANE PRN (10:13)
[2024-04-09] MEDS ORDERED: ZOLPIDEM 5 MG TAB PO PRN (10:13)
[2024-04-09] MEDS ORDERED: HEPARIN SODIUM 1,000 UN/ML (10ML VL) IV PRN (11:12)
--- NOTE | 2024-04-09 12:36 | P.PRCINT ---
Percutaneous Coronary Int. - Percutaneous Coronary Intervention Percutaneous Coronary Intervention: PROCEDURES PERFORMED: Right coronary angiography, IVUS RCA, CSI rotational atherectomy RCA, PCI proximal to distal RCA with overlapping 3.5 x 18mm, 3.0 x 38mm, 2.5 x 12 mm Xience ANABEL INDICATION: Abnormal stress test, NYHA class 3 angina with dyspnea on exertion CONSENT:I have discussed the risks, benefits and alternative therapies for the above-mentioned procedure and for both sedation/analgesia as well as necessary blood product administration, if indicated, as they pertain to this patient. The patient has indicated understanding and acceptance of the risks and procedures discussed. PROCEDURE: After the risks, benefits and alternatives of the above mentioned procedure explained in detail with the patient, informed consent was obtained. Patient was taken to the catheterization lab and prepped and draped in usual fashion. A 6Fr sheath had previously been placed in the right radial artery. The decision was made to perform PCI of the RCA. Heparin was given. A 6FR AL 0.75 guide was used to engage the RCA. A 0.014 BMW wire was placed in the distal RCA. A 3.0 and a 2.0 balloon were unable to pass past the mid RCA lesion. The BMW wire was attempted to be exchanged with a Corsair however this also could not pass. Therefore the lesion was wired with a 0.014 Viper wire. CSI rotational atherectomy was performed with a 1.25mm [place] at low speed for 3 runs and at high speed for 2 runs. With final run, patient did become bradycardic and hypotensive requiring Atropine and Neosynephrine without much improvement after 1 minute and therefore Epinephrine was given with improvement in BP and HR. Patient did have nausea and SOB after Epinephrine was given. After atherectomy there was dissection of the mid RCA. Balloon angioplast was performed with a 3.0 balloon. Next a 3.0 x 38mm Xience ANABEL was placed in the mid, an additional 3.5 x 18mm Xience ANABEL was placed overlapping more proximally. There was narrowing at the distal end of the stent and IVUS did show still small dissection at the distal end of the stent. Therefore this was covered with a 2.5 x 12 mm Xience ANABEL. The stent was post dilated with a 3.5mm NC balloon. Pre intervention there was 80% RCA stenosis and ROSALES 3 flow and post intervention there was <10% stenosis and ROSALES 3 flow. The right radial sheath was removed and a TR band was placed with hemostasis achieved. The patient tolerated the procedure well. Patient was transported back to the post catheterization holding area in stable condition. Conscious Sedation: Patient was monitored under the direct supervision of myself for conscious sedation using Versed and fentanyl for a total duration of 97 minutes HEMODYNAMICS: Ao: 110/71 SELECTIVE CORONARY ARTERIOGRAPHY: LEFT MAIN: Not imaged, see diagnostic report LEFT ANTERIOR DESCENDING CORONARY ARTERY: Not imaged, see diagnostic report LEFT CIRCUMFLEX CORONARY ARTERY: Not imaged, see diagnostic report RIGHT CORONARY ARTERY: The right coronary artery is a large caliber vessel which gives off a PDA and PLV branch and is the dominant vessel. There is diffuse proximal to mid RCA heavy calcification. The mid RCA has a more focal 80% stenosis followed by an 80% stenosis. FINAL IMPRESSION: 1. CAD as described above including 80% RCA stenosis 2. S/p PCI proximal to distal RCA with overlapping 3.5 x 18mm, 3.0 x 38mm, 2.5 x 12 mm Xience ANABEL PLAN: 1. Aggressive risk factor modification per most recent ACC/AHA guidelines. 2. Continue triple therapy with aspirin, Plavix and Coumadin for 1 week then decrease to Plavix and Coumadin for a total of 6 months.
[2024-04-09] MEDS: HEPARIN SOD,PORK IN 0.45% NACL 25,000 UNIT in 0.45% NACL 1 250ML.BAG IV SCH (13:22)
[2024-04-09] MEDS: PANTOPRAZOLE 40 MG TABLET PO SCH (14:00)
[2024-04-09] MEDS: SODIUM CHLORIDE 0.9% 1,000 ML in EMPTY BAG 1 BAG IV SCH (14:00)
[2024-04-09] MEDS: ONDANSETRON 4 MG/2 ML VIAL ONE (14:37)
[2024-04-09] MEDS: MAG HYDROX/AL HYDROX/SIMETH 30 ML CUP PO PRN (14:50)
[2024-04-09] MEDS: WARFARIN 5 MG TAB PO ONE (17:03)
[2024-04-09] MEDS ORDERED: NON FORMULARY DRUG (Rosuvastatin Calcium [Rosuvastatin Calcium] 5 MG Tablet) PO SCH (21:00)
[2024-04-10] MEDS ORDERED: PANTOPRAZOLE 40 MG TABLET PO SCH (07:30)
[2024-04-10 07:41] LABS: INR 1.1 (<1.2)
[2024-04-10 07:42] LABS: Prothrombin Time 11.4 sec (10.0-12.5)
[2024-04-10 07:50] LABS: Anisocytosis Slight; Basophils % (A) 1 %; Eosinophils # (A) 0.2 k/uL (0-0.7); Eosinophils % (A) 4 %; HCT 31.5 % (34.0-46.0); HGB 9.9 gm/dL (11.4-16.0); Hypochromasia Slight; Lymphocytes # (A) 1.5 k/uL (1.0-4.8); Lymphocytes % (A) 26 %; MCH 28.4 pg (25.0-35.0); MCHC 31.6 g/dL (31.0-37.0); MCV 89.8 fL (80.0-100.0); Mean Platelet Volume 7.6; Monocytes # (A) 0.4 k/uL (0-1.0); Monocytes % (A) 8 %; Neutrophils # (A) 3.4 k/uL (1.3-7.7); Neutrophils % (A) 59 %; Platelet Count 271 k/uL (150-450); WBC 5.7 k/uL (3.8-10.6)
[2024-04-10 08:23] LABS: African American GFR (CKD) >90 (>60 ml/min/1.73 sqM); Anion Gap 4 mmol/L; Blood Urea Nitrogen 12 mg/dL (7-17); Calcium 9.1 mg/dL (8.4-10.2); Carbon Dioxide 25 mmol/L (22-30); Chloride 110 mmol/L (98-107); Glucose 89 mg/dL (74-99); Non-African American GFR(CKD) 90 (>60 ml/min/1.73 sqM); Potassium 4.6 mmol/L (3.5-5.1); Sodium 139 mmol/L (137-145)
[2024-04-10 08:45] VITALS: BP 90/56; PULSE 61; RESP 17; TEMP 97.6
[2024-04-10] MEDS: GABAPENTIN 300 MG CAP PO SCH (08:45)
[2024-04-10] MEDS: CLOPIDOGREL 75 MG TAB PO SCH (08:45)
[2024-04-10] MEDS: METOPROLOL SUCCINATE (ER) 25 MG TAB.ER.24H PO SCH (08:45)
[2024-04-10] MEDS: DULoxetine HCL 60 MG CAPSULE.DR PO SCH (08:45)
[2024-04-10] MEDS: SERTRALINE 50 MG TAB PO SCH (08:45)
[2024-04-10] MEDS: buPROPion XL 300 MG TAB.ER.24H PO SCH (08:46)
[2024-04-10] MEDS: ISOSORBIDE MONONITRATE ER 30 MG TAB.ER.24H PO SCH (08:46)
[2024-04-10] MEDS: ASPIRIN 81 MG PO SCH (08:46)
[2024-04-10] MEDS: lisinopriL 10 MG TAB PO SCH (09:59)
--- NOTE | 2024-04-10 10:10 | P.DS ---
Providers Attending physician: Tiago Romero Consults: 04/09/24 10:13 Consult Physician Routine Consulting Provider: [facility] Consult Reason/Comments: Post Interventional patient Do you want consulting provider notified?: Already Contacted Primary care physician: Cordelia Jackson [facility] Course: Patient is a pleasant 63-year-old female with history of abnormal stress test and significant dyspnea with minimal exertion, [place] Heart Association class III symptoms who presented for elective left heart catheterization. She had stress test with inferior ischemia was found to have severe RCA 80% calcified stenosis. She therefore underwent PCI for right radial approach which required atherectomy and she did have significant bradycardia and hypotension with atherectomy requiring pressor support temporarily throughout procedure. Patient stabilized however with stenting and was monitored overnight on the floor. She denied any chest pain or pressure. She feels well this morning without any hematoma of her right radial site. Blood pressures however have been somewhat lower and she admits this has happened the 2 other times she has had neck surgery as well as ablation. We therefore obtained a cortisol to evaluate for adrenal insufficiency. Patient however currently hemodynamically stable and we will hold her lisinopril on discharge home and INR to be checked on Monday. She will be on aspirin, Plavix and Coumadin for 1 week and then Plavix and Coumadin for a total of 6 months. Plan - Discharge Summary Discharge Rx Participant: No New Discharge Prescriptions: New Aspirin 81 mg PO DAILY #30 tab Clopidogrel [Plavix] 75 mg PO DAILY #90 tab Continue Lansoprazole [Prevacid] 15 mg PO DAILY DULoxetine HCL [Cymbalta] 60 mg PO DAILY Cyanocobalamin [Vitamin B-12 Injection] 1,000 mcg SQ Q30D Gabapentin 600 mg PO DAILY Warfarin [Coumadin] 5 mg PO SUTUWEFRSA Warfarin [Coumadin] 7.5 mg PO MOTH Rosuvastatin Calcium 5 mg PO BID buPROPion XL [Wellbutrin XL] 300 mg PO DAILY Isosorbide Mononitrate ER [Imdur] 30 mg PO DAILY Sertraline [Zoloft] 50 mg PO DAILY Metoprolol Succinate [Metoprolol Succinate ER] 25 mg PO DAILY Discontinued lisinopriL [Zestril] 10 mg PO DAILY Aspirin 325 mg PO DAILY Discharge Medication List Lansoprazole [Prevacid] 15 mg PO DAILY 07/25/17 [History] Cyanocobalamin [Vitamin B-12 Injection] 1,000 mcg SQ Q30D 12/28/18 [History] DULoxetine HCL [Cymbalta] 60 mg PO DAILY 12/28/18 [History] Gabapentin 600 mg PO DAILY 07/15/20 [History] Rosuvastatin Calcium 5 mg PO BID 11/01/23 [History] buPROPion XL [Wellbutrin XL] 300 mg PO DAILY 12/28/23 [History] Isosorbide Mononitrate ER [Imdur] 30 mg PO DAILY 02/13/24 [History] Metoprolol Succinate [Metoprolol Succinate ER] 25 mg PO DAILY 02/13/24 [History] Sertraline [Zoloft] 50 mg PO DAILY 02/13/24 [History] Warfarin [Coumadin] 5 mg PO SUTUWEFRSA 04/05/24 [History] Warfarin [Coumadin] 7.5 mg PO MOTH 04/05/24 [History] Aspirin 81 mg PO DAILY #30 tab 04/10/24 [Rx] Clopidogrel [Plavix] 75 mg PO DAILY #90 tab 04/10/24 [Rx] Follow up Appointment(s)/Referral(s): Tiago Romero MD [STAFF PHYSICIAN] - 1 Week (APPOINTMENT MADE ON April @ 11:00AM ) Patient Instructions/Handouts: Clopidogrel (By mouth), Moderate Sedation (DC), Cardiac Rehabilitation (ED), Coronary Intravascular Stent Placement (DC), After Radial Heart Catheterization (GEN) Activity/Diet/Wound Care/Special Instructions: *NO LIFTING, PUSHING, OR PULLING ANYTHING OVER 5 POUNDS FOR 5 DAYS *NO DRIVING FOR 3 DAYS *YOU CAN REMOVE YOUR DRESSING TOMORROW BUT DO NOT SUBMERSE YOUR PUNCTURE SITE IN WATER FOR A FEW DAYS TO PREVENT INFECTION - SO NO TUB BATHS, POOLS, HOT TUBS, DISHES...ETC *ANY SIGNS OF BLEEDING (HARDNESS, SWELLING, OR EXCESSIVE BRUISING) HOLD DIRECT PRESSURE ON YOUR PUNCTURE SITE AND COME TO THE NEAREST EMERGENCY ROOM TO GET YOUR PUNCTURE SITE LOOKED AT - DO NOT DRIVE YOURSELF! EITHER CALL EMS OR HAVE SOMEONE DRIVE YOU!
[2024-04-10] MEDS ORDERED: WARFARIN 5 MG TAB PO ONE (18:00)
[2024-04-10] MEDS ORDERED: ATORVASTATIN 80 MG TAB PO SCH (21:00)
[2024-04-11] MEDS ORDERED: WARFARIN 5 MG TAB PO SCH (10:08)
[2024-04-15] MEDS ORDERED: CYANOCOBALAMIN 1,000 MCG/ML 1 ML VIAL SQ SCH (09:00)
== END 2024-04-10 12:29 | disposition home or self-care (01) ==
LOC: CATHCVL 05:37 → 3SCARD 09:30 → CATHCVL 04-10 12:29
PROVIDERS: ATTEND Internal Medicine Cardiovascular Disease
DX: I25.119 Atherosclerotic heart disease of native coronary artery with unspecified angina pectoris (principal); Z79.82 Long term (current) use of aspirin; Z79.899 Other long term (current) drug therapy; Z79.02 Long term (current) use of antithrombotics/antiplatelets; Z95.5 Presence of coronary angioplasty implant and graft; Z79.01 Long term (current) use of anticoagulants
CPT/HCPCS: 92978; 93458; 80048; 82533; 85025 ×2; 85610 ×2; 85730 ×2; C9602; C1769 ×4; C1894; C1887 ×2; C1725 ×4; C1753; C1874 ×3; C1751; J2250; J2405; J2001; J0461; J3010 ×2; J1644 ×3; Q9967; J2371